=== PATIENT | male | born 1945 | race Caucasian/White ===

== ENCOUNTER → 2018-08-31 10:31 | Outpatient (CLI) | payer MEDICARE, OTHER, SELFPAY ==
[2018-08-31 11:17] LABS: Alanine Aminotransferase 31 IU/L (21-72); Albumin 4.2 g/dL (3.5-5.0); Albumin Globulin Ratio 1.2 (1.0-2.8); Alkaline Phosphatase 47 U/L (38-126); Aspartate Aminotransferase 33 IU/L (17-59); Bilirubin Total 0.7 mg/dL (0.2-1.3); Blood Urea Nitrogen 18 mg/dL (9-20); Calcium 9.4 mg/dL (8.4-10.2); Carbon Dioxide 31 mmol/L (22-32); Chloride 100 mmol/L (98-107); Cholesterol 101 mg/dL (140-199); Estimated Glomerular Filt Rate > 60.0 mL/min (>60); Globulin 3.4 g/dL (1.7-4.1); Glucose 105 mg/dL (80-110); HDL Cholesterol 43 mg/dL (40-60); HEMOLYSIS 19 (0-50); LDL Cholesterol Calculated 37 mg/dL (<100); Sodium 140 mmol/L (137-145); Total Protein 7.6 g/dL (6.3-8.2); Triglycerides 106 mg/dL (35-150)
== END ==
PROVIDERS: PCP Internal Medicine; Visit Provider Internal Medicine Cardiovascular Disease
DX: E78.5 Hyperlipidemia, unspecified (principal)
CPT/HCPCS: 36415; 80053; 80061

== ENCOUNTER → 2018-09-04 10:34 | Outpatient (CLI) | payer MEDICARE, OTHER, SELFPAY ==
--- NOTE | 2018-09-04 | DI.RAD.S_ITS ---
PROCEDURE: XR HIP W PEL IF DONE LT MIN 4V INDICATIONS: Right Hip Pain TECHNIQUE: AP pelvis with lateral view(s) of the right hip(s). COMPARISON: [facility], , XR HIP W PEL IF DONE LT 2V, 12/14/2017, 15:31. FINDINGS: Bones: No fractures or dislocations. Pelvic ring appears intact. No suspicious bony lesions. Soft tissues: The visualized bowel gas pattern is normal. No suspicious soft tissue calcifications. IMPRESSION: No definite radiographic abnormality. If pain persists, consider cross sectional imaging such as CT or MRI for further assessment. Dictated by: Johann Aguilar [facility] Interpreted: Jose Barrera MD on 09/04/2018 at 11:12 Approved by: Jose Barrera M.D. on 09/04/2018 at 16:59
== END ==
PROVIDERS: PCP Internal Medicine; Visit Provider Internal Medicine
DX: M25.551 Pain in right hip (principal)
CPT/HCPCS: 73522

== ENCOUNTER 2018-11-08 16:09 | Emergency (ER) | payer MEDICARE, OTHER, SELFPAY ==
[2018-11-08 16:18] VITALS: BP 126/75; PULSE 63; RESP 20; TEMP 36; O2SAT 96; BMI 31.3
--- NOTE | 2018-11-08 16:21 | DI.RAD.S_ITS ---
PROCEDURE: XR CHEST 2V INDICATIONS: cough for 30 days TECHNIQUE: 2 views of the chest were acquired. COMPARISON: [facility], , CHEST 1 VIEW, 02/05/2017, 8:17. FINDINGS: Surgical changes and devices: None. Lungs and pleura: Increase of the vascular markings and bilateral hilar region are seen with mild bronchial wall thickening. No focal infiltrate. No pleural effusions or pneumothorax. Mediastinum: Mediastinal contours are normal. Heart size is enlarged. Bones and chest wall: No suspicious bony abnormalities. Soft tissues appear unremarkable. IMPRESSION: Suggestion of reactive airway disease such as bronchitis or asthma. No focal infiltrate. Cardiomegaly. Dictated by: Jose Barrera M.D. on 11/08/2018 at 16:32 Approved by: Jose Barrera M.D. on 11/08/2018 at 16:35
--- NOTE | 2018-11-08 17:34 | ED.URI ---
HPI - URI/Sore Throat <WOJCIECH Dalton - Last Filed: 11/08/18 17:39> General Chief Complaint: Upper Respiratory Symptoms Stated Complaint: Cough Time Seen by Provider: 11/08/18 17:07 Source: patient and family Mode of arrival: ambulatory Limitations: no limitations History of Present Illness HPI Narrative: Patient is a 73-year-old male with cardiac history who presents with his for a chief complaint of a cough times over a month. He states that he can't sleep because his cough is so bad. He has associated nasal congestion. states that he was getting better, then got worse. He denies any severe shortness of breath or chest pain. Denies any fevers nausea vomiting, but complains of slight diarrhea. He states he has a history of a lung infection that damaged his lungs. He denies any dizziness or neurological symptoms today. He has tried multiple enhl-ckb-nnqscqf remedies including cough syrup, cold medication, etc. His states he wheezes occasionally at night. He states that he has cough is productive with whitish yellow sputum. He denies any ear pain. Related Data Home Medications Medication Instructions Recorded Confirmed losartan 25 mg PO QDAY #0 02/22/17 Previous Rx's Medication Instructions Recorded ondansetron [Zofran ODT] 4 mg SUBLINGUAL Q6HP PRN #10 odt 02/05/17 meclizine 25 mg PO Q6HP PRN #20 tab 02/22/17 cyclobenzaprine 10 mg PO TIDP PRN #14 tab 11/15/17 ketorolac 10 mg PO Q6HP PRN #15 tab 11/15/17 doxycycline hyclate 100 mg PO BID #20 tab 11/08/18 Allergies Allergy/AdvReac Type Severity Reaction Status Date / Time lisinopril AdvReac Mild COUGH Unverified 11/16/17 13:03 Review of Systems <WOJCIECH Dalton - Last Filed: 11/08/18 17:39> Review of Systems GENERAL: Denies chills, fatigue, malaise, fever, sweats. HEENT: See HPI RESPIRATORY: See HPI CARDIOVASCULAR: See HPI GASTROINTESTINAL: See HPI : Denies dysuria, frequency, incontinence, hematuria, urinary retention. MUSCULOSKELETAL: denies weakness, joint pain, or bony pain SKIN: Denies rash, skin lesions, or other NEUROLOGIC: Denies weakness, headache, numbness, change in speech, confusion, seizures, incoordination. PSYCHIATRIC: No concerning psychosocial issues. 12 point review of systems is negative except for those stated above PFSH <WOJCIECH Dalton - Last Filed: 11/08/18 17:39> Social History Smoking Status: Never smoker Social History Smoking Status: Never smoker Exam <WOJCIECH Dalton - Last Filed: 11/08/18 17:39> Narrative Exam Narrative: GENERAL: This is a well-nourished, well-developed patient, no acute distress at bedside HEAD: Atraumatic. Normocephalic. No temporal or scalp tenderness. EYES: Pupils equal round and reactive. Extraocular motions intact. No scleral icterus. No injection or drainage. ENT: Nose without bleeding, purulent drainage or septal hematoma. Throat without erythema, tonsillar hypertrophy or exudate. Uvula midline. Airway patent. the bilateral TMs pearly gallo. NECK: Trachea midline. No JVD or lymphadenopathy. Supple, nontender, no meningeal signs. CARDIOVASCULAR: Regular rate and rhythm without murmurs, gallops, or rubs. RESPIRATORY: Clear to auscultation. Breath sounds equal bilaterally. No wheezes, rales, or rhonchi. Perseverative cough during exam. GASTROINTESTINAL: Abdomen soft, non-tender, nondistended. No hepato-splenomegaly, or palpable masses. No guarding. active bowel signs all 4 quadrants. EXTREMITIES: No clubbing, cyanosis, or edema. No joint tenderness, effusion, or edema noted. BACK: Nontender without deformity or crepitance. No flank tenderness. NEURO: AOx3. SKIN: No rash or erythema. Initial Vital Signs Initial Vital Signs: Vital Signs Temperature 96.8 F L 11/08/18 16:18 Pulse Rate 63 11/08/18 16:18 Respiratory Rate 20 11/08/18 16:18 Blood Pressure 126/75 11/08/18 16:18 Pulse Oximetry 96 11/08/18 16:18 <Kristen Ugarte MD - Last Filed: 11/08/18 19:05> Initial Vital Signs Initial Vital Signs: Vital Signs Temperature 96.8 F L 11/08/18 16:18 Pulse Rate 63 11/08/18 16:18 Respiratory Rate 20 11/08/18 16:18 Blood Pressure 126/75 11/08/18 16:18 Pulse Oximetry 96 11/08/18 16:18 Course <WOJCIECH Dalton - Last Filed: 11/08/18 17:39> Orders Ordered: ED Orders 11/08/18 16:21 CXR [XR chest 2V] Stat Vital Signs - 8 hr 11/08/18 16:18 11/08/18 17:45 Temperature 96.8 F L Pulse Rate 63 60 Respiratory Rate 20 20 Blood Pressure 126/75 123/76 Pulse Oximetry 96 99 <Kristen Ugarte MD - Last Filed: 11/08/18 19:05> Orders Ordered: ED Orders 11/08/18 16:21 CXR [XR chest 2V] Stat Vital Signs - 8 hr 11/08/18 16:18 11/08/18 17:45 Temperature 96.8 F L Pulse Rate 63 60 Respiratory Rate 20 20 Blood Pressure 126/75 123/76 Pulse Oximetry 96 99 MDM - URI/Sore Throat <WOJCIECH Dalton - Last Filed: 11/08/18 17:39> Imaging Data Chest x-ray: Radiologist's impression: [place] [address] XRay Report Signed Patient: Chad Martinez [facility]#: [id number] : 7Acct:[id number] Age/Sex: 73 / MDate of Service: 11/08/18 Loc: ED Accession Number: [id number] Procedure: XR chest 2V Ordering Provider: Kristen Ugrate MD PROCEDURE: XR CHEST 2V INDICATIONS: cough for 30 days TECHNIQUE: 2 views of the chest were acquired. COMPARISON: , , CHEST 1 VIEW, 02/05/2017, 8:17. FINDINGS: Surgical changes and devices: None. Lungs and pleura: Increase of the vascular markings and bilateral hilar region are seen with mild bronchial wall thickening. No focal infiltrate. No pleural effusions or pneumothorax. Mediastinum: Mediastinal contours are normal. Heart size is enlarged. Bones and chest wall: No suspicious bony abnormalities. Soft tissues appear unremarkable. IMPRESSION: Suggestion of reactive airway disease such as bronchitis or asthma. No focal infiltrate. Cardiomegaly. Dictated by: Jose Barrera M.D. on 11/08/2018 at 16:32 Approved by: Jose Barrera M.D. on 11/08/2018 at 16:35 [facility] Narrative Medical decision making narrative: The patient is a 73-year-old male who presents with a chief complaint of a cough times over a month. He does not have an obvious infiltrate on his x-ray, though I am concerned about bacterial infection given his duration of cough and double 2nd Ng. Given his reported lung damage, is also higher risk of a bacterial infection. Thus I will treat him with doxycycline at this point time. I discussed at length continued iuee-ecj-njpvmig medications. Discussed following up with primary care provider. Discussed return precautions including severe shortness of breath, acute concerns. Patient and had no questions or concerns upon discharge. Discharge Plan Departure Patient Disposition: Home Clinical Impression: Lung infection Discharge Date/Time: 11/08/18 17:46 Interventions: ED Discharge Assessment Last Done: 11/08/18 17:45 Instructions: DI for Acute Bronchitis Activity Restrictions/Additional Instructions: I am treating you for bacterial infection given the duration of your symptoms. Please wear sunscreen while taking this antibiotic. Please follow up with your primary care provider and come back to emergency department for any acute concerns including severe shortness of breath, chest pain etc. Prescriptions: New doxycycline hyclate 100 mg tablet 100 mg PO BID Qty: 20 RF: 0 No Action ondansetron [Zofran ODT] 4 MG tablet,disintegrating 4 mg Sublingual Q6HP PRNQty: 10 RF: 0 losartan 25 MG tablet 25 mg PO QDAY Qty: 0 RF: 0 meclizine 25 MG tablet 25 mg PO Q6HP PRNQty: 20 RF: 0 cyclobenzaprine 10 MG tablet 10 mg PO TIDP PRNQty: 14 RF: 0 ketorolac 10 MG tablet 10 mg PO Q6HP PRNQty: 15 RF: 0 Referrals: Ramon Paris MD [Primary Care Provider] -
--- NOTE | 2018-11-08 17:39 | ED_ITS ---
HPI - URI/Sore Throat <WOJCIECH Dalton - Last Filed: 11/08/18 17:39> General Chief Complaint: Upper Respiratory Symptoms Stated Complaint: Cough Time Seen by Provider: 11/08/18 17:07 Source: patient and family Mode of arrival: ambulatory Limitations: no limitations History of Present Illness HPI Narrative: Patient is a 73-year-old male with cardiac history who presents with his for a chief complaint of a cough times over a month. He states that he can't sleep because his cough is so bad. He has associated nasal congestion. states that he was getting better, then got worse. He denies any severe shortness of breath or chest pain. Denies any fevers nausea vomiting, but complains of slight diarrhea. He states he has a history of a lung infection that damaged his lungs. He denies any dizziness or neurological symptoms today. He has tried multiple zdwi-qnm-foonodm remedies including cough syrup, cold medication, etc. His states he wheezes occasionally at night. He states that he has cough is productive with whitish yellow sputum. He denies any ear pain. Related Data Home Medications Medication Instructions Recorded Confirmed losartan 25 mg PO QDAY #0 02/22/17 Previous Rx's Medication Instructions Recorded ondansetron [Zofran ODT] 4 mg SUBLINGUAL Q6HP PRN #10 odt 02/05/17 meclizine 25 mg PO Q6HP PRN #20 tab 02/22/17 cyclobenzaprine 10 mg PO TIDP PRN #14 tab 11/15/17 ketorolac 10 mg PO Q6HP PRN #15 tab 11/15/17 doxycycline hyclate 100 mg PO BID #20 tab 11/08/18 Allergies Allergy/AdvReac Type Severity Reaction Status Date / Time lisinopril AdvReac Mild COUGH Unverified 11/16/17 13:03 Review of Systems <WOJCIECH Dalton - Last Filed: 11/08/18 17:39> Review of Systems GENERAL: Denies chills, fatigue, malaise, fever, sweats. HEENT: See HPI RESPIRATORY: See HPI CARDIOVASCULAR: See HPI GASTROINTESTINAL: See HPI : Denies dysuria, frequency, incontinence, hematuria, urinary retention. MUSCULOSKELETAL: denies weakness, joint pain, or bony pain SKIN: Denies rash, skin lesions, or other NEUROLOGIC: Denies weakness, headache, numbness, change in speech, confusion, seizures, incoordination. PSYCHIATRIC: No concerning psychosocial issues. 12 point review of systems is negative except for those stated above PFSH <WOJCIECH Dalton - Last Filed: 11/08/18 17:39> Social History Smoking Status: Never smoker Social History Smoking Status: Never smoker Exam <WOCJIECH Dalton - Last Filed: 11/08/18 17:39> Narrative Exam Narrative: GENERAL: This is a well-nourished, well-developed patient, no acute distress at bedside HEAD: Atraumatic. Normocephalic. No temporal or scalp tenderness. EYES: Pupils equal round and reactive. Extraocular motions intact. No scleral icterus. No injection or drainage. ENT: Nose without bleeding, purulent drainage or septal hematoma. Throat without erythema, tonsillar hypertrophy or exudate. Uvula midline. Airway patent. the bilateral TMs pearly gallo. NECK: Trachea midline. No JVD or lymphadenopathy. Supple, nontender, no meningeal signs. CARDIOVASCULAR: Regular rate and rhythm without murmurs, gallops, or rubs. RESPIRATORY: Clear to auscultation. Breath sounds equal bilaterally. No wheezes, rales, or rhonchi. Perseverative cough during exam. GASTROINTESTINAL: Abdomen soft, non-tender, nondistended. No hepato- splenomegaly, or palpable masses. No guarding. active bowel signs all 4 quadrants. EXTREMITIES: No clubbing, cyanosis, or edema. No joint tenderness, effusion, or edema noted. BACK: Nontender without deformity or crepitance. No flank tenderness. NEURO: AOx3. SKIN: No rash or erythema. Initial Vital Signs Initial Vital Signs: Vital Signs Temperature 96.8 F L 11/08/18 16:18 Pulse Rate 63 11/08/18 16:18 Respiratory Rate 20 11/08/18 16:18 Blood Pressure 126/75 11/08/18 16:18 Pulse Oximetry 96 11/08/18 16:18 <Kristen Ugarte MD - Last Filed: 11/08/18 19:05> Initial Vital Signs Initial Vital Signs: Vital Signs Temperature 96.8 F L 11/08/18 16:18 Pulse Rate 63 11/08/18 16:18 Respiratory Rate 20 11/08/18 16:18 Blood Pressure 126/75 11/08/18 16:18 Pulse Oximetry 96 11/08/18 16:18 Course <WOJCIECH Dalton - Last Filed: 11/08/18 17:39> Orders Ordered: ED Orders 11/08/18 16:21 CXR [XR chest 2V] Stat Vital Signs - 8 hr 11/08/18 16:18 11/08/18 17:45 Temperature 96.8 F L Pulse Rate 63 60 Respiratory Rate 20 20 Blood Pressure 126/75 123/76 Pulse Oximetry 96 99 <Kristen Ugarte MD - Last Filed: 11/08/18 19:05> Orders Ordered: ED Orders 11/08/18 16:21 CXR [XR chest 2V] Stat Vital Signs - 8 hr 11/08/18 16:18 11/08/18 17:45 Temperature 96.8 F L Pulse Rate 63 60 Respiratory Rate 20 20 Blood Pressure 126/75 123/76 Pulse Oximetry 96 99 MDM - URI/Sore Throat <WOJCIECH Dalton - Last Filed: 11/08/18 17:39> Imaging Data Chest x-ray: Radiologist's impression: [place] [address] XRay Report Signed Patient: Chad Martinez [facility]#: [id number] : 7Acct:[id number] Age/Sex: 73 / MDate of Service: 11/08/18 Loc: ED Accession Number: [id number] Procedure: XR chest 2V Ordering Provider: Kristen Ugarte MD PROCEDURE: XR CHEST 2V INDICATIONS: cough for 30 days TECHNIQUE: 2 views of the chest were acquired. COMPARISON: [facility], , CHEST 1 VIEW, 02/05/2017, 8:17. FINDINGS: Surgical changes and devices: None. Lungs and pleura: Increase of the vascular markings and bilateral hilar region are seen with mild bronchial wall thickening. No focal infiltrate. No pleural effusions or pneumothorax. Mediastinum: Mediastinal contours are normal. Heart size is enlarged. Bones and chest wall: No suspicious bony abnormalities. Soft tissues appear unremarkable. IMPRESSION: Suggestion of reactive airway disease such as bronchitis or asthma. No focal infiltrate. Cardiomegaly. Dictated by: Jose Barrera M.D. on 11/08/2018 at 16:32 Approved by: Jose Barrera M.D. on 11/08/2018 at 16:35 [facility] Narrative Medical decision making narrative: The patient is a 73-year-old male who presents with a chief complaint of a cough times over a month. He does not have an obvious infiltrate on his x-ray, though I am concerned about bacterial infection given his duration of cough and double 2nd Ng. Given his reported lung damage, is also higher risk of a bacterial infection. Thus I will treat him with doxycycline at this point time. I discussed at length continued khza-zws-jpcgyzn medications. Discussed following up with primary care pr ovider. Discussed return precautions including severe shortness of breath, acute concerns. Patient and had no questions or concerns upon discharge. Discharge Plan Departure Patient Disposition: Home Clinical Impression: Lung infection Discharge Date/Time: 11/08/18 17:46 Interventions: ED Discharge Assessment Last Done: 11/08/18 17:45 Instructions: DI for Acute Bronchitis Activity Restrictions/Additional Instructions: I am treating you for bacterial infection given the duration of your symptoms. Please wear sunscreen while taking this antibiotic. Please follow up with your primary care provider and come back to emergency department for any acute concerns including severe shortness of breath, chest pain etc. Prescriptions: New doxycycline hyclate 100 mg tablet 100 mg PO BID Qty: 20 RF: 0 No Action ondansetron [Zofran ODT] 4 MG tablet,disintegrating 4 mg Sublingual Q6HP PRNQty: 10 RF: 0 losartan 25 MG tablet 25 mg PO QDAY Qty: 0 RF: 0 meclizine 25 MG tablet 25 mg PO Q6HP PRNQty: 20 RF: 0 cyclobenzaprine 10 MG tablet 10 mg PO TIDP PRNQty: 14 RF: 0 ketorolac 10 MG tablet 10 mg PO Q6HP PRNQty: 15 RF: 0 Referrals: Ramon Paris MD [Primary Care Provider] -
[2018-11-08 17:45] VITALS: BP 123/76; PULSE 60; RESP 20; O2SAT 99
== END 2018-11-08 17:46 | disposition home or self-care (01) ==
PROVIDERS: Emergency Provider Nurse Practitioner Family; PCP Internal Medicine
DX: J18.9 Pneumonia, unspecified organism (principal)
CPT/HCPCS: 71046; 99282; 99283

== ENCOUNTER 2018-11-20 07:22 | Day surgery (SDC) | payer MEDICARE, OTHER, SELFPAY ==
[2018-11-20] VITALS (7 sets, daily range): BP systolic 110–132; BP diastolic 69–84; PULSE 53–60; RESP 11–24; TEMP 35.7–36.6; O2SAT 95–97; BMI 31.1
--- NOTE | 2018-11-20 07:38 | PM.HP.1 ---
History of Present Illness Chief complaint: [id number] Narrative: 73yo M referred for screening colonoscopy for CRC. No blood in stools, weight loss, change in stool caliber. Father of rectal cancer at age 65 so patient gets screens every 5 years; has never had any polyps. Tolerates sedation and scopes well. Recently had ECHO and stress test per intensive care ambulance paramedic and no issues per pt. Patient History Medical History (Updated 11/20/18 @ 07:58 by Isabelle Swanson MD) CAD (coronary artery disease) (Acute) HLD (hyperlipidemia) (Acute) HTN (hypertension) (Acute) Prostate enlargement (Acute) Social History household members: spouse Smoking Status: Never smoker Family & Social History Tobacco & Substance use: Smoking Status Never smoker Substance Use Type does not use Meds Home Medications Medication Instructions Recorded Confirmed Type aspirin 81 mg PO DAILY 11/20/18 11/20/18 History atorvastatin 40 mg PO BEDTIME 11/20/18 11/20/18 History hydrochlorothiazide 25 mg PO BEDTIME 11/20/18 11/20/18 History losartan 25 mg PO DAILY 11/20/18 11/20/18 History metoprolol tartrate 12.5 mg PO BID 11/20/18 11/20/18 History tamsulosin 0.4 mg PO BID 11/20/18 11/20/18 History Allergies Allergy/AdvReac Type Severity Reaction Status Date / Time lisinopril AdvReac Mild COUGH Verified 11/20/18 07:34 Review of Systems Constitutional Constitutional: Reports as per HPI Exam Vital Signs (past 8 hours): AAO, NAD, obese male EOMI, MMM, no scleral icterus unlabored RA soft, nt/nd MAEW Assessment & Plan (1) Screening for colorectal cancer: Current visit: Yes Status: Acute Assessment & Plan narrative: - plan for high risk screening colonoscopy --> all R/B/A discussed and pt wishes to proceed
[2018-11-20] MEDS: LACTATED RINGERS 1,000 ML 200 ML IV (07:56)
--- NOTE | 2018-11-20 07:56 | P.HP_ITS ---
History of Present Illness Chief complaint: [id number] Narrative: 73yo M referred for screening colonoscopy for CRC. No blood in stools, weight loss, change in stool caliber. Father of rectal cancer at age 65 so patient gets screens every 5 years; has never had any polyps. Tolerates sedation and scopes well. Recently had ECHO and stress test per front office representative and no issues per pt. Patient History Medical History (Updated 11/20/18 @ 07:58 by Isabelle Swanson MD) CAD (coronary artery disease) (Acute) HLD (hyperlipidemia) (Acute) HTN (hypertension) (Acute) Prostate enlargement (Acute) Social History household members: spouse Smoking Status: Never smoker Family & Social History Tobacco & Substance use: Smoking Status Never smoker Substance Use Type does not use Meds Home Medications Medication Instructions Recorded Confirmed Type aspirin 81 mg PO DAILY 11/20/18 11/20/18 History atorvastatin 40 mg PO BEDTIME 11/20/18 11/20/18 History hydrochlorothiazide 25 mg PO BEDTIME 11/20/18 11/20/18 History losartan 25 mg PO DAILY 11/20/18 11/20/18 History metoprolol tartrate 12.5 mg PO BID 11/20/18 11/20/18 History tamsulosin 0.4 mg PO BID 11/20/18 11/20/18 History Allergies Allergy/AdvReac Type Severity Reaction Status Date / Time lisinopril AdvReac Mild COUGH Verified 11/20/18 07:34 Review of Systems Constitutional Constitutional: Reports as per HPI Exam Vital Signs (past 8 hours): AAO, NAD, obese male EOMI, MMM, no scleral icterus unlabored RA soft, nt/nd MAEW Assessment & Plan (1) Screening for colorectal cancer: Current visit: Yes Status: Acute Assessment & Plan narrative: - plan for high risk screening colonoscopy --> all R/B/A discussed and pt wishes to proceed
[2018-11-20] MEDS: MIDAZOLAM 5 MG/5 ML VIAL IV (08:20)
[2018-11-20] MEDS: fentaNYL 250 MCG/5 ML INJ IV (08:21)
--- NOTE | 2018-11-20 08:28 | PM.OP.ENDO ---
Operative Date/Time/Diagnoses Date of procedure: 11/20/18 Time of procedure: 08:28 Pre-op diagnosis: high risk screening colorectal cancer Post-op diagnosis: same Procedure & Clinicians Study performed: high risk screening for colorectal cancer Same procedure as scheduled: Yes Indications: high risk screening colonoscopy Procedure Notes Procedure in detail: After obtaining informed consent, the patient was brought to the GI suite and placed in the left lateral decubitus position on the examination table. After placement of appropriate monitors, the patient was given incremental doses of Versed and Fentanyl until an appropriate level of sedation was achieved. A time out was held per SCOAP protocol. A digital rectal examination was performed and did not reveal any masses or obstructing lesions but small external hemorrhoids are noted. The colonoscope was gently passed into the patient's anus and the entire colon navigated to the level of the cecum with minimal difficulty. Prep was adequate with moderate green fluid present including some small stool matter. Once in the cecum, the scope was withdrawn being sure to go before and beyond all mucosal folds and prominences as able to get an excellent examination. No masses or poly At the level of the rectal vault, the scope was retroflexed and the internal anal canal was examined. The scope was straightened and air aspirated from the colon. The instrument was removed from the patient's body and the procedure was concluded. The patient was allowed to awaken from sedation without difficulty and taken to the post-anesthesia care unit in good condition. Scope withdrawal time: 8 Sedation minutes: 19 Findings: diverticulosis Specimen(s): none sent Complications: none Recommendations: Colonscopy in 5 years Follow up: as needed Disposition: same day surgery
--- NOTE | 2018-11-20 09:00 | PM.OP.ENDO ---
Operative Date/Time/Diagnoses Date of procedure: 11/20/18 Time of procedure: 08:29 Pre-op diagnosis: high risk screening colonoscopy Post-op diagnosis: same Procedure & Clinicians Study performed: high risk screening colonoscopy Same procedure as scheduled: Yes Indications: high risk screening for colorectal cancer Procedure Notes SCOAP/Timeout: 805 Procedure in detail: After obtaining informed consent, the patient was brought to the GI suite and placed in the left lateral decubitus position on the examination table. After placement of appropriate monitors, the patient was given incremental doses of Versed and Fentanyl until an appropriate level of sedation was achieved. A time out was held per SCOAP protocol. A digital rectal examination was performed and did not reveal any masses or obstructing lesions but small external hemorrhoids are noted. The colonoscope was gently passed into the patient's anus and the entire colon navigated to the level of the cecum with minimal difficulty. Prep was adequate with moderate green fluid present including some small stool matter. Once in the cecum, the scope was withdrawn being sure to go before and beyond all mucosal folds and prominences as able to get an excellent examination. No masses or polyps noted. Patient has extensive diverticulosis throughout sigmoid and left colon. At the level of the rectal vault, the scope was retroflexed and the internal anal canal was examined. The scope was straightened and air aspirated from the colon. The instrument was removed from the patient's body and the procedure was concluded. The patient was allowed to awaken from sedation without difficulty and taken to the post-anesthesia care unit in good condition. Scope withdrawal time: 8 Sedation minutes: 19 Findings: diverticulosis (sigmoid and left colon; moderate to severe) Specimen(s): none sent Complications: none Impression: 1. Extensive moderate to severe diverticulosis of sigmoid and left colon 2. Small external hemorrhoids Recommendations: Colonscopy in 5 years and High fiber diet Follow up: as needed Disposition: same day surgery
== END 2018-11-20 09:15 | disposition home or self-care (01) ==
LOC: ENDO 07:24
PROVIDERS: PCP Internal Medicine; Visit Provider Surgery
PROC: 0DJD8ZZ Inspection of Lower Intestinal Tract, Via Natural or Artificial Opening Endoscopic (ICD-10-PCS; CPT 45378; principal; 2018-11-20 08:45)
DX: Z12.11 Encounter for screening for malignant neoplasm of colon (principal); Z80.0 Family history of malignant neoplasm of digestive organs; I25.10 Atherosclerotic heart disease of native coronary artery without angina pectoris; E78.5 Hyperlipidemia, unspecified; I10 Essential (primary) hypertension; N40.0 Benign prostatic hyperplasia without lower urinary tract symptoms; K57.30 Diverticulosis of large intestine without perforation or abscess without bleeding; K64.4 Residual hemorrhoidal skin tags
CPT/HCPCS: G0105; 99152; J2250; J3010

== ENCOUNTER 2019-02-18 10:18 | Emergency (ER) | payer MEDICARE, OTHER, SELFPAY ==
--- NOTE | 2019-02-18 10:34 | DI.RAD.S_ITS ---
PROCEDURE: XR RIBS LT MIN 3V W CXR1V INDICATIONS: Rib pain TECHNIQUE: 3 views of the left ribs were acquired, along with a single view chest. COMPARISON: [facility], CR, XR CHEST 2V, 11/08/2018, 16:27. FINDINGS: Surgical changes and devices: None. Bones and chest wall: No fractures or dislocations. No suspicious bony lesions. Overlying soft tissues appear unremarkable. Age-appropriate bony degenerative changes are seen. Lungs and pleura: No pleural effusions or pneumothorax. Lungs appear clear. Mediastinum: Mediastinal contours appear normal. Heart size is normal. IMPRESSION: No displaced rib fractures are seen. Dictated by: Александр Martin M.D. on 02/18/2019 at 9:45 Approved by: Александр Martin M.D. on 02/18/2019 at 9:46
[2019-02-18 10:35] VITALS: BP 128/91; PULSE 61; RESP 17; TEMP 36.6; O2SAT 99
--- NOTE | 2019-02-18 11:11 | ED.BACK ---
HPI - Back Pain/Injury General Chief Complaint: Back Pain/Injury Stated Complaint: Left rib pain Time Seen by Provider: 02/18/19 10:49 Source: patient Mode of arrival: ambulatory Limitations: no limitations History of Present Illness HPI Narrative: Patient comes to the emergency department complaining of left rib pain after reaching back while sitting on his tractor to pull lever about 1 week ago. He states he felt a pop at that time, and has had increasing pain in his left chest wall since. Patient denies shortness of breath. No other chest pain. No radiation of the pain to anywhere else. No nausea or vomiting. No fevers or chills. No cough. No other complaints at this time. No further injuries. Related Data Home Medications Medication Instructions Recorded Confirmed aspirin 81 mg PO DAILY 11/20/18 11/20/18 atorvastatin 40 mg PO BEDTIME 11/20/18 11/20/18 hydrochlorothiazide 25 mg PO BEDTIME 11/20/18 11/20/18 losartan 25 mg PO DAILY 11/20/18 11/20/18 metoprolol tartrate 12.5 mg PO BID 11/20/18 11/20/18 tamsulosin 0.4 mg PO BID 11/20/18 11/20/18 Previous Rx's Medication Instructions Recorded hydrocodone-acetaminophen 1 tab PO Q4-6H PRN #14 tab 02/18/19 Allergies Allergy/AdvReac Type Severity Reaction Status Date / Time lisinopril AdvReac Mild COUGH Verified 11/20/18 07:34 Review of Systems Constitutional Denies chills, Denies fever(s), Denies lethargy and Denies weakness Eyes Denies change in vision, Denies eye discharge, Denies irritation and Denies loss of vision ENT Ears, Nose, Mouth, and Throat: Denies change in voice, Denies neck pain and Denies sore throat Cardiovascular Reports chest pain, Denies irregular heart rhythm, Denies lightheadedness, Denies palpitations, Denies dyspnea, Denies dyspnea on exertion and Denies orthopnea Respiratory Denies cough, Denies dyspnea, Denies dyspnea on exertion and Denies wheezing Gastrointestinal Gastrointestinal: Denies abdominal pain, Denies change in bowel habits, Denies diarrhea, Denies nausea and Denies vomiting Genitourinary Denies hematuria, Denies flank pain, Denies urinary incontinence and Denies urinary urgency Musculoskeletal Denies neck pain Integumentary/Breasts Denies pruritus, Denies erythema, Denies rash and Denies wounds Neurologic Denies confusion, Denies loss of vision and Denies weakness Psychiatric Denies anxiety, Denies confusion, Denies depression, Denies homicidal ideation and Denies suicidal ideation Endocrine Denies palpitations Hematologic/Lymphatic Denies easy bruising Allergic/Immunologic Denies wheezing [facility] Medical History CAD (coronary artery disease) (Acute) HLD (hyperlipidemia) (Acute) HTN (hypertension) (Acute) Prostate enlargement (Acute) Social History household members: spouse Smoking Status: Never smoker Social History household members: spouse Smoking Status: Never smoker Exam Initial Vital Signs Initial Vital Signs: Vital Signs Temperature 97.8 F 02/18/19 10:35 Pulse Rate 61 02/18/19 10:35 Respiratory Rate 17 02/18/19 10:35 Blood Pressure 128/91 H 02/18/19 10:35 Pulse Oximetry 99 02/18/19 10:35 Const General: cooperative and well developed Nutritional Appearance: well nourished Orientation: alert, awake, oriented x3 and not confused [facility] Head: normocephalic and atraumatic Ears: external ears normal and TM's normal bilaterally Nose: external nose normal and No nasal discharge Face and sinus: sinuses nontender, face symmetric, no sinus tenderness and No dry mucous membranes Mouth: oral mucosae normal and moist mucous membranes Teeth and gingiva: dentition normal Throat: tonsils normal and uvula midline Eyes General: appearance normal, both eyes and all related structures Eyelids: eyelids normal Conjunctivae: conjunctivae normal Sclera: sclerae normal Pupils: PERRL EOM: EOM intact bilaterally Neck Neck: normal visual inspection, trachea midline, No lymphadenopathy, No midline deformity and No JVD Lymphatic: No lymphedema Chest Chest: tenderness (Over rib 8 lateral aspect on the left) Resp Effort & Inspection: normal respiratory effort, able to speak in complete sentences, no respiratory distress and no use of accessory muscles Auscultation: clear to auscultation bilaterally, no rales, no rhonchi and no wheezes Cardio Rate: regular rate Rhythm: regular rhythm Heart Sounds: no click, no gallops, no murmurs and no rubs Pulses: normal peripheral pulses GI Inspection: non-distended Palpation: soft, no hepatosplenomegaly, No guarding, No pulsatile mass and No tender Auscultation: normal bowel sounds Back/Spine/Pelvis Back: No CVA tenderness Cervical Spine: cervical ROM normal and No pain with cervical ROM Thoracic/Lumbar Spine: thoracic and lumbar spine normal to inspection Skin General: no rashes or lesions noted, No jaundice and No petechiae Neuro General: alert, oriented x3, gait normal and no focal motor deficits Speech: speech normal Extrem General: full ROM, no clubbing, cyanosis or edema, no pedal edema and no calf tenderness Psych Appearance: well kempt Mental Status: mental status grossly normal Attitude: cooperative Thought Content: normal and suicidality Judgment: judgment good Course Course Narrative: Patient declined symptomatic treatment in the emergency department. X-ray of the ribs and chest was unremarkable. I discussed with the patient that he is most likely strain the soft tissue in his chest wall, and that while this is uncomfortable, it will resolve on its own. We have discussed symptomatic management at home, as well as the usual indications for return. Orders Ordered: ED Orders 02/18/19 10:34 XR ribs LT min 3V w CXR1V Stat Vital Signs - 8 hr 02/18/19 10:35 Temperature 97.8 F Pulse Rate 61 Respiratory Rate 17 Blood Pressure 128/91 H Pulse Oximetry 99 MDM - Back Pain/Injury Medical Records Attestation: I reviewed the patient's medical records. Imaging Data Chest x-ray: Radiologist's impression: PROCEDURE: XR RIBS LT MIN 3V W CXR1V INDICATIONS: Rib pain TECHNIQUE: 3 views of the left ribs were acquired, along with a single view chest. COMPARISON: [facility], , XR CHEST 2V, 11/08/2018, 16:27. FINDINGS: Surgical changes and devices: None. Bones and chest wall: No fractures or dislocations. No suspicious bony lesions. Overlying soft tissues appear unremarkable. Age-appropriate bony degenerative changes are seen. Lungs and pleura: No pleural effusions or pneumothorax. Lungs appear clear. Mediastinum: Mediastinal contours appear normal. Heart size is normal. IMPRESSION: No displaced rib fractures are seen. Dictated by: Александр Martin M.D. on 02/18/2019 at 9:45 Approved by: Александр Martin M.D. on 02/18/2019 at 9:46 Discharge Plan Departure Patient Disposition: Home Clinical Impression: Strain of chest wall Qualifiers: Encounter type: initial encounter Qualified Code(s): S29.011A - Strain of muscle and tendon of front wall of thorax, initial encounter Instructions: DI for Chest Pain Activity Restrictions/Additional Instructions: Your x-rays look good. Your lungs are normal, as are your bones. There is no evidence of a break or of any bony abnormality to raise concern for an underlying condition. You have most likely strained part of the muscular layer between your ribs, and this has become inflamed and spasms. This will heal on its own in time. You may use the Vicodin instead of the Tylenol, as needed for pain. You may also increase your aspirin intake to 325 mg every 6 hours to help with pain control, as well. Please follow up with your primary care physician for further concerns. Prescriptions: New hydrocodone-acetaminophen 5-325 mg tablet 1 tab PO Q4-6H PRN (Reason: pain) Qty: 14 RF: 0 No Action atorvastatin 40 mg tablet 40 mg PO BEDTIME RF: 0 tamsulosin 0.4 mg capsule 0.4 mg PO BID RF: 0 hydrochlorothiazide 25 mg tablet 25 mg PO BEDTIME RF: 0 metoprolol tartrate 25 mg tablet 12.5 mg PO BID RF: 0 losartan 25 mg tablet 25 mg PO DAILY RF: 0 aspirin 81 mg Tablet,Delayed Release (Dr/Ec) 81 mg PO DAILY RF: 0 Referrals: Ramon Paris MD [Primary Care Provider] -
[2019-02-18 11:24] VITALS: BP 118/86; PULSE 62; RESP 17; O2SAT 100
== END 2019-02-18 11:25 | disposition home or self-care (01) ==
PROVIDERS: Emergency Provider Emergency Medicine; PCP Internal Medicine
DX: S29.011A Strain of muscle and tendon of front wall of thorax, initial encounter (principal)
CPT/HCPCS: 71101; 99282; 99283

== ENCOUNTER 2020-02-21 21:30 | Emergency (ER) | payer MEDICARE, OTHER, SELFPAY ==
[2020-02-21 21:45] VITALS: BP 149/85; PULSE 77; RESP 15; TEMP 36.4; O2SAT 97; BMI 31.4
--- NOTE | 2020-02-21 21:45 | ED_ITS ---
HPI - Eye Problem General Chief complaint: Eye Problems Stated complaint: something in his right eye Time Seen by Provider: 02/21/20 21:45 Source: patient Mode of arrival: Ambulatory Limitations: no limitations History of Present Illness HPI Narrative: 74-year-old male nonsmoker with history of hypertension and hyperlipidemia presents with his in the chief complaint of a foreign body in his right eye. He states that he was working outside yesterday and felt something blow into his eye and has felt bit irritated ever since. He denies any drainage, significant pain or change in his vision. He states that he feels that it is on the lower right aspect of his field of vision in his right eye. He does not were contacts. He states his tetanus is out-of-date MD chief complaint: foreign body Onset (ago): day(s) Onset description: sudden Duration: constant Location: right eye Eye Symptoms: foreign body sensation Place: street/outdoors Mechanism: direct trauma Severity: mild Associated symptoms: none Treatments Prior to Arrival: none Related Data Patient tetanus UTD: No Home Medications Medication Instructions Recorded Confirmed aspirin 81 mg PO DAILY 11/20/18 11/20/18 atorvastatin 40 mg PO BEDTIME 11/20/18 11/20/18 hydrochlorothiazide 25 mg PO BEDTIME 11/20/18 11/20/18 losartan 25 mg PO DAILY 11/20/18 11/20/18 metoprolol tartrate 12.5 mg PO BID 11/20/18 11/20/18 tamsulosin 0.4 mg PO BID 11/20/18 11/20/18 Previous Rx's Medication Instructions Recorded hydrocodone-acetaminophen 1 tab PO Q4-6H PRN #14 tab 02/18/19 Allergies Allergy/AdvReac Type Severity Reaction Status Date / Time lisinopril AdvReac Mild COUGH Verified 11/20/18 07:34 Review of Systems Constitutional Constitutional: Denies chills, Denies fatigue, Denies fever(s), Denies frequent falls, Denies lethargy and Denies weakness Eyes Eyes: Denies change in vision, Denies eye discharge, Denies irritation and Denies loss of vision ENT Ears, Nose, Mouth, and Throat: Denies change in voice, Denies dizziness, Denies neck pain, Denies sore throat and Denies throat swelling Cardiovascular Cardiovascular: Denies chest pain, Denies irregular heart rhythm, Denies lightheadedness, Denies palpitations, Denies dyspnea, Denies dyspnea on exertion and Denies orthopnea Respiratory Respiratory: Denies cough, Denies dyspnea, Denies dyspnea on exertion and Denies wheezing Gastrointestinal Gastrointestinal: Denies abdominal pain, Denies change in bowel habits, Denies diarrhea, Denies nausea and Denies vomiting Musculoskeletal Musculoskeletal: Denies neck pain and Denies numbness Integumentary/Breasts Skin/Breast: Denies pruritus, Denies erythema, Denies rash and Denies wounds Neurologic Neurologic: Denies behavioral changes, Denies confusion, Denies dizziness, Denies frequent falls, Denies loss of vision, Denies numbness and Denies weakness Psychiatric Psychiatric: Denies anxiety, Denies behavioral changes, Denies confusion, Denies depression, Denies homicidal ideation and Denies suicidal ideation Endocrine Endocrine: Denies fatigue, Denies flushing and Denies palpitations Hematologic/Lymphatic Hematologic/Lymphatic: Denies easy bruising Allergic/Immunologic Allergic/Immunologic: Denies urticaria, Denies throat swelling and Denies wheezing Patient History Medical History CAD (coronary artery disease) (Acute) HLD (hyperlipidemia) (Acute) HTN (hypertension) (Acute) Prostate enlargement (Acute) Social History household members: spouse Smoking Status: Never smoker Smoking Status: Never smoker Substance Use Type: does not use Exam Narrative Exam Narrative: GEN: AOx3 and in mild distress EYES: Pupils are equal, round, and reactive to light and accommodation. Extraoccular muscles are intact bilaterally. There is no subconjunctival hem orrhage or exudate. Visual acuity noted in nurse's chart. Proparacaine instilled in right eye resulted in a near complete resolution of symptoms. Eyelash noted at the 7 o'clock position and easily removed. Viewed with fluorescein under UV and no dye uptake noted. Upper lid everted and no other foreign body noted. No sign of infection or drainage CHEST: Lungs are clear to auscultation bilaterally and free of wheezes, rales, or rhonchi. Heart rate is regular rhythm, there are no murmurs, clicks, rubs, or gallops. There is no chest wall tenderness. ABD: Abdomen is soft and nontender. There is no guarding or rebound. Bowel sounds are normal in all 4 quadrants. There is no mass or organomegaly. EXT: Full painless ROM of all extremities with no loss of sensation or strength. SKIN: Warm, pink, and dry. No erythema or rash Initial Vital Signs Initial Vital Signs: Vital Signs Temperature 97.5 F L 02/21/20 21:45 Pulse Rate 77 02/21/20 21:45 Respiratory Rate 15 02/21/20 21:45 Blood Pressure 149/85 H 02/21/20 21:45 Pulse Oximetry 97 02/21/20 21:45 Course Orders Ordered: Discontinued Medications Diphtheria/Tetanus/Acell Pertussis (Adacel) 0.5 ml IM .ONCE ONE Stop: 02/21/20 22:20 Last Admin: 02/21/20 22:40 Dose: 0.5 ml Documented by: MMCFARL Fluorescein Sodium (Ful-Nadia) 1 mg EYE-RIGHT NOW ONE Stop: 02/21/20 22:06 Last Admin: 02/21/20 22:09 Dose: 1 mg Documented by: MMCFARL Proparacaine HCl (Parcaine 0.5% Ophth Astrid) 1 drops EYE-RIGHT NOW ONE Stop: 02/21/20 21:47 Last Admin: 02/21/20 22:08 Dose: 1 drop Documented by: MMCFARL Vital Signs Vital signs: Vital Signs - 8 hr 02/21/20 22:44 Pulse Rate 75 Respiratory Rate 16 Blood Pressure 127/83 Pulse Oximetry 96 Discharge Plan Departure Patient Disposition: Home Clinical Impression: Foreign body in eye Qualifiers: Encounter type: initial encounter Laterality: right Qualified Code(s): T15.91XA - Foreign body on external eye, part unspecified, right eye, initial encounter Discharge Date/Time: 02/21/20 23:00 Instructions: DI for Foreign Body in the Eye Activity Restrictions/Additional Instructions: *You have been diagnosed with [foreign body in right eye, I removed a hair that was likely causing her trouble.] *What to do: *Follow up with your primary care provider in 2-3 days, call for an appointment. Let them know you were seen in the Emergency Department and that we ask that you be seen in follow up *Return to ER if you should have any new, worsening or concerning symptoms Prescriptions: No Action hydrocodone-acetaminophen 5-325 mg tablet 1 tab PO Q4-6H PRN (Reason: pain) Qty: 14 RF: 0 atorvastatin 40 mg tablet 40 mg PO BEDTIME RF: 0 tamsulosin 0.4 mg capsule 0.4 mg PO BID RF: 0 hydrochlorothiazide 25 mg tablet 25 mg PO BEDTIME RF: 0 metoprolol tartrate 25 mg tablet 12.5 mg PO BID RF: 0 losartan 25 mg tablet 25 mg PO DAILY RF: 0 aspirin 81 mg Tablet,Delayed Release (Dr/Ec) 81 mg PO DAILY RF: 0 Referrals: Ramon Paris MD [Primary Care Provider] -
[2020-02-21] MEDS: PROPARACAINE 0.5% OPHTH SOL 1 DROPS EYE-RIGHT (22:08)
[2020-02-21] MEDS: FLUORESCEIN 1 MG STRIP EYE-RIGHT (22:09)
[2020-02-21] MEDS: TET,DIPH,PERTUSS(ACELL),VAC/PF 0.5 ML SYRINGE IM (22:40)
[2020-02-21 22:44] VITALS: BP 127/83; PULSE 75; RESP 16; O2SAT 96
== END 2020-02-21 23:00 | disposition home or self-care (01) ==
PROVIDERS: Emergency Provider Emergency Medicine; PCP Internal Medicine
DX: T15.91XA Foreign body on external eye, part unspecified, right eye, initial encounter (principal); Z23 Encounter for immunization
CPT/HCPCS: 90471; 99283; 90715

== ENCOUNTER → 2020-03-31 08:30 | Outpatient (CLI) | payer MEDICARE, OTHER, SELFPAY ==
[2020-03-31 09:33] LABS: BUN Creatinine Ratio 14.4 (6-22); Blood Urea Nitrogen 15 mg/dL (9-20); Calcium 8.9 mg/dL (8.4-10.2); Carbon Dioxide 29 mmol/L (22-32); Chloride 101 mmol/L (98-107); Cholesterol 118 mg/dL (140-199); Estimated Glomerular Filt Rate > 60.0 mL/min (>60); Glucose 109 mg/dL (80-110); HDL Cholesterol 48 mg/dL (40-60); HEMOLYSIS 30 (0-50); LDL Cholesterol Calculated 35 mg/dL (<100); Potassium 4.2 mmol/L (3.4-5.1); Sodium 139 mmol/L (137-145); Triglycerides 173 mg/dL (35-150)
== END ==
PROVIDERS: PCP Internal Medicine; Referring Provider Nurse Practitioner; Visit Provider Nurse Practitioner
DX: I25.10 Atherosclerotic heart disease of native coronary artery without angina pectoris (principal); E78.5 Hyperlipidemia, unspecified; I10 Essential (primary) hypertension; I77.810 Thoracic aortic ectasia
CPT/HCPCS: 36415; 80048; 80061

== ENCOUNTER → 2021-04-09 09:46 | Outpatient (CLI) | payer MEDICARE, OTHER, SELFPAY ==
[2021-04-09 10:47] LABS: Add Manual Diff / Slide Review NO; Basophils Absolute Auto 100 /uL (0-100); Basophils Percent Auto 0.9 % (0-2); Eosinophils Absolute Auto 100 /uL (0-450); Eosinophils Percent Auto 1.9 % (2-4); Hematocrit 40.8 % (41-53); Hemoglobin 14.1 g/dL (13.5-17.5); Lymphocytes Absolute Auto 2000 /uL (1100-4500); Lymphocytes Percent Auto 32.2 % (25-40); Mean Corpuscular HGB Conc 34.6 % (30-36); Mean Corpuscular Hemoglobin 31.8 PG (26-34); Mean Corpuscular Volume 91.7 fL (80-100); Monocytes Absolute Auto 600 /uL (0-900); Monocytes Percent Auto 10.1 % (3-14); Neutrophils Absolute Auto 3500 /uL (1500-7000); Neutrophils Percent Auto 54.9 % (50-75); Platelet Count 162 X10^3/uL (150-400); Red Blood Cell Count 4.45 X10^6/uL (4.5-5.9); Red Cell Distribution Width 13.3 % (11.6-14.8); White Blood Cell Count 6.3 X10^3/uL (4.5-11.0)
[2021-04-09 10:54] LABS: Alanine Aminotransferase 31 IU/L (<50); Albumin 4.2 g/dL (3.5-5.0); Albumin Globulin Ratio 1.4 (1.0-2.8); Alkaline Phosphatase 52 U/L (38-126); Aspartate Aminotransferase 39 IU/L (17-59); BUN Creatinine Ratio 12.5 (6-22); Bilirubin Total 0.9 mg/dL (0.2-1.3); Blood Urea Nitrogen 11 mg/dL (9-20); Calcium 9.3 mg/dL (8.4-10.2); Carbon Dioxide 29 mmol/L (22-32); Chloride 103 mmol/L (98-107); Cholesterol 104 mg/dL (140-199); Estimated Glomerular Filt Rate > 60.0 mL/min (>60); Globulin 2.9 g/dL (1.7-4.1); Glucose 114 mg/dL (80-110); HDL Cholesterol 50 mg/dL (40-60); HEMOLYSIS < 15 (0-50); LDL Cholesterol Calculated 26 mg/dL (<100); Potassium 4.2 mmol/L (3.4-5.1); Sodium 139 mmol/L (137-145); Total Protein 7.1 g/dL (6.3-8.2); Triglycerides 141 mg/dL (35-150)
[2021-04-09 11:18] LABS: Prostate Specific Antigen Scrn 0.746 ng/mL (0.1-4.0)
== END ==
PROVIDERS: PCP Family Medicine; Referring Provider Family Medicine; Visit Provider Family Medicine
DX: N40.1 Benign prostatic hyperplasia with lower urinary tract symptoms (principal); I10 Essential (primary) hypertension; R39.14 Feeling of incomplete bladder emptying; E78.5 Hyperlipidemia, unspecified
CPT/HCPCS: 36415; 80053; 80061; 84153; 85025; G0103

== ENCOUNTER 2021-09-06 03:57 | Emergency (ER) | payer MEDICARE, OTHER, SELFPAY ==
[2021-09-06 04:00] VITALS: BP 154/71; PULSE 68; RESP 15; TEMP 36.1; O2SAT 99
--- NOTE | 2021-09-06 04:06 | ED_ITS ---
HPI - Skin/Abscess/Foreign Bdy General Chief complaint: Extremity Injury, Upper Stated complaint: ring stuck on finger Time Seen by Provider: 09/06/21 04:04 History of Present Illness HPI narrative: Patient is a 75-year-old male history of coronary artery disease presenting with need for ring removal. He is he grabbed a horse yesterday by the Holter who tried to run. No injury to his finger however this morning when he woke up he noticed that his left ring finger was swollen around his wedding ring. Nursing staff has removed the ring. No numbness tingling or weakness. Related Data Home Medications Medication Instructions Recorded Confirmed aspirin 81 mg tablet,delayed 81 mg PO DAILY 11/20/18 11/20/18 release atorvastatin 40 mg tablet 40 mg PO BEDTIME 11/20/18 11/20/18 hydrochlorothiazide 25 mg tablet 25 mg PO BEDTIME 11/20/18 11/20/18 losartan 25 mg tablet 25 mg PO DAILY 11/20/18 11/20/18 metoprolol tartrate 25 mg tablet 12.5 mg PO BID 11/20/18 11/20/18 tamsulosin 0.4 mg capsule 0.4 mg PO BID 11/20/18 11/20/18 Previous Rx's Medication Instructions Recorded hydrocodone 5 mg-acetaminophen 325 1 tab PO Q4-6H PRN #14 tab 02/18/19 mg tablet Allergies Allergy/AdvReac Type Severity Reaction Status Date / Time lisinopril AdvReac Mild COUGH Verified 11/20/18 07:34 Review of Systems Review of Systems Narrative: GENERAL: Denies chills,fever HEENT: Denies throat pain RESPIRATORY: Denies dyspnea, cough, wheezing CARDIOVASCULAR: Denies chest pain, palpitations GASTROINTESTINAL: Denies nausea, vomiting MUSCULOSKELETAL: See HPI SKIN: No rash, no laceration, no pruritus NEUROLOGIC: Denies weakness, dizziness, headache, numbness 8 point review of systems is negative except for those stated above and HPI Patient History Medical History (Updated 09/06/21 @ 04:05 by Sujey Solis DO) CAD (coronary artery disease) HLD (hyperlipidemia) HTN (hypertension) Prostate enlargement Social History household members: spouse Smoking Status: Never smoker Smoking Status: Never smoker Substance Use Type: does not use Exam Initial Vital Signs Initial Vital Signs: Vital Signs Temperature 97.0 F L 09/06/21 04:00 Pulse Rate 68 09/06/21 04:00 Respiratory Rate 15 09/06/21 04:00 Blood Pressure 154/71 H 09/06/21 04:00 Pulse Oximetry 99 09/06/21 04:00 GENERAL: Well-appearing, well-nourished and in no acute distress. CARDIOVASCULAR: peripheral pulses in tact, cap refill <2 sec RESPIRATORY: No respiratory distress, speaks in full sentences without difficulty EXTREMITIES: Normal range of motion, no clubbing or edema. Neurovascularly intact Left hand ring has now been removed full flexion extension and sergeant missile crewman strength. NEUROLOGICAL: Cranial nerves II through XII grossly intact. Normal gait and speech. SKIN: Warm, dry, no petechiae, no rashes or lesions. Course Vital Signs Vital signs: Vital Signs - 8 hr 09/06/21 04:00 Temperature 97.0 F L Pulse Rate 68 Respiratory Rate 15 Blood Pressure 154/71 H Pulse Oximetry 99 Discharge Plan Departure Patient Disposition: Home Clinical Impression: Foreign body Activity Restrictions/Additional Instructions: *You have been diagnosed with ring removed *What to do: *Continue to take medications as directed *Follow up with your primary care provider in 2-3 days or call [phone] *Return to ER if you should have increased swelling numbness tingling or any new, worsening or concerning symptoms Prescriptions: No Action hydrocodone-acetaminophen 5-325 mg tablet 1 tab PO Q4-6H PRN (Reason: pain) Qty: 14 0RF atorvastatin 40 mg tablet 40 mg PO BEDTIME 0RF tamsulosin 0.4 mg capsule 0.4 mg PO BID 0RF hydrochlorothiazide 25 mg tablet 25 mg PO BEDTIME 0RF metoprolol tartrate 25 mg tablet 12.5 mg PO BID 0RF losartan 25 mg tablet 25 mg PO DAILY 0RF aspirin 81 mg Tablet,Delayed Release (Dr/Ec) 81 mg PO DAILY 0RF Referrals: Agus Denton MD [Primary Care Provider] -
--- NOTE | 2021-09-06 04:08 | PC.NURSE ---
Ring was removed with lubricant.
== END 2021-09-06 04:10 | disposition home or self-care (01) ==
LOC: ED 04:08
PROVIDERS: Emergency Provider Emergency Medicine; PCP Family Medicine
DX: S60.445A External constriction of left ring finger, initial encounter (principal); W49.04XA Ring or other jewelry causing external constriction, initial encounter
CPT/HCPCS: 99281

== ENCOUNTER → 2022-02-25 10:39 | Outpatient (CLI) | payer MEDICARE, OTHER, SELFPAY ==
--- NOTE | 2022-02-25 | DI.US.S_ITS ---
PROCEDURE: US ABD AORTA ANEURYSM SCREEN INDICATIONS: AAA Screening TECHNIQUE: Real time scanning was performed of the aorta and iliac arteries, with image documentation. COMPARISON: [facility], US, ABD AORTA ANEURYSM SCREENING, 11/02/2012, 8:30. [facility], CT, ABDOMEN/PELVIS WITH CONTRAST, 11/15/2017, 9:26. FINDINGS: Aorta: Proximal aortic diameter measures 1.9 x 2.5 cm. Mid-aorta measures 2 x 1.8 cm. Distal aortic diameter is 1.9 x 2 cm. Iliac arteries: Right common iliac artery measures 0.9 x 1.1 cm. Left common iliac artery measures 0.8 x 1.1 cm. IMPRESSION: Negative for aneurysm. Dictated by: Александр Matrin M.D. on 02/25/2022 at 10:42 Approved by: Александр Martin M.D. on 02/25/2022 at 10:43
--- NOTE | 2022-02-25 | DI.US.S_ITS ---
PROCEDURE: US THYROID INDICATIONS: Nontoxic single thyroid nodule TECHNIQUE: Real-time scanning was performed of the thyroid gland, with image documentation. COMPARISON: None. FINDINGS: Right: Thyroid lobe measures 4.2 x 2 x 1.8 cm, and is homogeneous in echotexture. Left: Thyroid lobe measures 4.3 x 1.8 x 1.3 cm, and is homogenous in echotexture. Isthmus: 0.3 cm thick. Nodule number: 1 Location: Right inferior Size: 0.9 x 0.9 x 0.7 cm. Composition: Solid Echogenicity: Hypoechoic Shape: wider than tall. Margins: Ill-defined Echogenic foci: None Total points: 3 ACR TI-RADS category: TR 3, mildly suspicious IMPRESSION: Right thyroid nodule measuring 0.9 cm. TR 3, mildly suspicious. No further imaging follow-up is required given its small size. ACR TI-RADS definitions and recommendations: TI-RADS 1 (benign): 0 points. FNA not needed. TI-RADS 2 (not suspicious): 2 points. FNA not needed. TI-RADS 3 (mildly suspicious): 3 points. * FNA if 2.5 cm or larger, follow up if 1.5 cm or larger (at 1, 3, and 5 years). TI-RADS 4 (moderately suspicious): 4-6 points. * FNA if 1.5 cm or larger, follow up if 1 cm or larger (at 1, 2, 3, and 5 years). TI-RADS 5 (highly suspicious): 7 points or more. * FNA if 1 cm or larger, follow up if 0.5 cm or larger (every year for 5 years). Dictated by: Kade Herbert M.D. on 02/25/2022 at 11:53 Approved by: Kade Herbert M.D. on 02/25/2022 at 11:57
== END ==
PROVIDERS: PCP Internal Medicine; Referring Provider Internal Medicine; Visit Provider Internal Medicine
DX: Z13.6 Encounter for screening for cardiovascular disorders (principal); E04.1 Nontoxic single thyroid nodule
CPT/HCPCS: 76536; 76706

== ENCOUNTER 2022-10-21 04:17 | Emergency (ER) | payer MEDICARE, OTHER, SELFPAY ==
[2022-10-21 04:29] VITALS: BP 143/56; PULSE 63; PULSE 66; RESP 22; TEMP 36.1; O2SAT 98; BMI 16.9
[2022-10-21 04:30] VITALS: PULSE 59; O2SAT 98
--- NOTE | 2022-10-21 04:33 | DI.CT.S_ITS ---
PROCEDURE: CT KIDNEY URETER BLADDER (KUB) INDICATIONS: left flank pain TECHNIQUE: Axial sections were acquired from the lung bases to the pubic symphysis. Coronal and sagittal reformats were performed. For radiation dose reduction, the following was used: automated exposure control, adjustment of mA and/or kV according to patient size. COMPARISON: None. FINDINGS: Image quality: Excellent. Lung bases: Thin-walled 3.7 cm parenchymal cyst at the left lung base. Lung bases otherwise unremarkable. Heart: Tiny hiatal hernia. Mild cardiomegaly. URINARY: Right Kidney: No stones or hydronephrosis. Right Ureter: No hydroureter. Left Kidney: Mild left hydronephrosis. No significant perinephric inflammation. Left Ureter: Mild left hydroureter. 3 mm stone at the left distal ureter just above the ureterovesicular junction. Bladder: Partially decompressed urinary bladder. A portion of the urinary bladder wall is incorporated into a moderate sized right inguinal hernia. ABDOMEN: Liver: Mild hepatic steatosis. Gallbladder: Normal. Biliary ducts: Nondilated. Pancreas: Normal. Spleen: Normal size. Adrenal Glands: No nodules. Stomach and Bowel: Stomach and small bowel loops are decompressed. Normal quantity of stool present in the colon. Descending and sigmoid diverticulosis without acute diverticulitis. Normal appendix. Peritoneum: No abnormal intraperitoneal fluid. No free air. Ventral Wall: No hernia. Abdominal Nodes: Mildly prominent periportal lymph nodes, can be seen with steatosis. No other significant retroperitoneal or mesenteric adenopathy. Vessels: Aorta and inferior vena cava are normal in size. PELVIS: Pelvic Organs: Normal size prostate gland. Pelvic Nodes: Unremarkable. Miscellaneous: Moderate-sized right inguinal hernia containing fat and a small portion of bowel. Tiny fat containing left inguinal hernia. Bones: Multilevel degenerative disc and endplate changes throughout the spine. IMPRESSION: 1. 3 mm stone just above the left ureterovesicular junction causing mild left sided hydroureteronephrosis. 2. Moderate-sized fat and bladder containing right inguinal hernia. 3. Diverticulosis without acute diverticulitis. 4. Mild hepatic steatosis. 5. Final interpretation is concordant with preliminary report. Dictated by: Althea Forbes M.D. on 10/21/2022 at 8:39 Approved by: Althea Forbes M.D. on 10/21/2022 at 9:15
--- NOTE | 2022-10-21 04:33 | ED.ABDPAIN ---
HPI - Abdominal Pain General Chief Complaint: Back Pain/Injury Stated Complaint: abd pain Time Seen by Provider: 10/21/22 04:22 History of Present Illness HPI narrative: Patient is a 77-year-old male history of hypertension hyperlipidemia presenting today with left-sided pain radiating around to his abdomen. He is had going back pain over this feels different. He took Flexeril and ibuprofen prior to arrival but he overall is not feeling great. He feels very nauseous which is also abnormal. No vomiting. He any fever. Related Data Home Medications Medication Instructions Recorded Confirmed aspirin 81 mg tablet,delayed 81 mg PO DAILY 11/20/18 11/20/18 release atorvastatin 40 mg tablet 40 mg PO BEDTIME 11/20/18 11/20/18 hydrochlorothiazide 25 mg tablet 25 mg PO BEDTIME 11/20/18 11/20/18 losartan 25 mg tablet 25 mg PO DAILY 11/20/18 11/20/18 metoprolol tartrate 25 mg tablet 12.5 mg PO BID 11/20/18 11/20/18 tamsulosin 0.4 mg capsule 0.4 mg PO BID 11/20/18 11/20/18 Previous Rx's Medication Instructions Recorded hydrocodone 5 mg-acetaminophen 325 1 tab PO Q4-6H PRN pain #14 tabs 02/18/19 mg tablet hydrocodone 5 mg-acetaminophen 325 1 tab PO Q6H PRN pain #10 tabs 10/21/22 mg tablet ondansetron 4 mg disintegrating 4 mg PO Q8H PRN nausea and 10/21/22 tablet vomiting #10 tabs Allergies Allergy/AdvReac Type Severity Reaction Status Date / Time lisinopril AdvReac Mild COUGH Verified 11/20/18 07:34 Review of Systems Review of Systems ROS Unobtainable: All systems reviewed & are unremarkable except as noted in HPI and below Patient History Medical History (Updated 10/21/22 @ 05:39 by Sujey Solis DO) CAD (coronary artery disease) HLD (hyperlipidemia) HTN (hypertension) Prostate enlargement Social History household members: spouse Smoking Status: Never smoker Smoking Status: Never smoker Substance Use Type: does not use Exam Initial Vital Signs Initial Vital Signs: Vital Signs Temperature 97.0 F L 10/21/22 04:29 Pulse Rate 63 10/21/22 04:29 Respiratory Rate 22 10/21/22 04:29 Blood Pressure 143/56 H 10/21/22 04:29 Pulse Oximetry 98 10/21/22 04:29 Oxygen Delivery Method Room Air 10/21/22 04:29 GENERAL: Alert pleasant 77-year-old and in no acute distress. HEENT: Head atraumatic,EOMI, pupils reactive, face symmetric, moist mucous membrane CARDIOVASCULAR: Regular rate and rhythm without murmurs, rubs or gallops. RESPIRATORY: Breath sounds equal bilaterally, no wheezes rales or rhonchi. ABDOMEN: Soft, nontender. Normoactive bowel sounds all 4 quadrants. No guarding or rebound. : Mild left CVA tenderness EXTREMITIES: Normal range of motion, no clubbing or edema. Neurovascularly intact NEUROLOGICAL: Alert and oriented x4 SKIN: Warm, dry, no laceration, no petechiae, no rashes or lesions. Course Orders Ordered: Discontinued Medications Hydrocodone Bitart/Acetaminophen (Hydrocodone/Acet 5/325 Prepack) [facility] Stop: 10/21/22 05:45 Last Admin: 10/21/22 05:55 Dose: 1 bottle Documented By: ANITHA Ketorolac Tromethamine (Ketorolac 30 Mg/Ml Vial) 30 mg IV NOW ONE Stop: 10/21/22 04:34 Last Admin: 10/21/22 04:46 Dose: 30 mg Documented By: TENISHA Ondansetron HCl (Ondansetron 4 Mg/2 Ml Inj) 4 mg IV NOW ONE Stop: 10/21/22 04:34 Last Admin: 10/21/22 04:46 Dose: 4 mg Documented By: TENISHA Ondansetron HCl (Ondansetron 4 Mg Odt Prepack) 1 [facility] Stop: 10/21/22 05:45 Last Admin: 10/21/22 05:55 Dose: 1 bottle Documented By: ANITHA MDM - Abdominal Pain Lab Data 10/21/22 04:30 10/21/22 04:30 Labs: Lab Results 10/21/22 10/21/22 10/21/22 Range/Units 04:30 04:30 05:40 WBC 8.2 (4.5-11.0) X10^3/uL RBC 4.43 L (4.5-5.9) X10^6/uL Hgb 13.7 (13.5-17.5) g/dL Hct 39.5 L (41-53) % MCV 89.3 (80-100) fL MCH 30.9 (26-34) PG MCHC 34.6 (30-36) % RDW 14.0 (11.6-14.8) % Plt Count 184 (150-400) X10^3/uL Neut % (Auto) 59.9 (50-75) % Lymph % (Auto) 29.0 (25-40) % [place]t % (Auto) 8.8 (3-14) % Eos % (Auto) 1.8 L (2-4) % Baso % (Auto) 0.5 (0-2) % Neut # (Auto) 4900 (9857-9329) /uL Lymph # (Auto) 2400 (0606-2588) /uL Knott # (Auto) 700 (0-900) /uL Eos # (Auto) 200 (0-450) /uL Baso # (Auto) 0 (0-100) /uL Sodium 138 (137-145) mmol/L Potassium 3.7 (3.4-5.1) mmol/L Chloride 99 (98-107) mmol/L Carbon Dioxide 31 (22-32) mmol/L BUN 13 (9-20) mg/dL Creatinine 0.97 (0.66-1.25) mg/dL Estimated GFR > 60 (>60) mL/min BUN/Creatinine Ratio 13.4 (6-22) Glucose 132 H (80-110) mg/dL Calcium 8.5 (8.4-10.2) mg/dL Total Bilirubin 0.9 (0.2-1.3) mg/dL AST 33 (17-59) IU/L ALT 29 (<50) IU/L Alkaline Phosphatase 57 (38-126) U/L Total Protein 7.5 (6.3-8.2) g/dL Albumin 4.0 (3.5-5.0) g/dL Globulin 3.5 (1.7-4.1) g/dL Albumin/Globulin Ratio 1.1 (1.0-2.8) Lipase 287 (23-300) U/L Urine RBC 30-100/hpf H (0-5/HPF) Urine WBC None seen (0-5/HPF) Urine Bacteria None seen (None) Micro UA Comment * Point of care testing: Urine Dip Bedside Urine Glucose Negative Bedside Urine Bilirubin - Negative Bedside Urine Ketone - Negative Urine Specific [place] 1.025 Bedside Urine Occult Blood +++ Bedside Urine pH 6.0 Bedside Urine Protein - Negative Bedside Urine Urobilinogen 1+ 2mg Bedside Urine Nitrite - Negative Bedside Urine Leukocytes - Negative Esterase Imaging Data CT scan - abdomen/pelvis: Radiologist's Impression: Preliminary report: Mild left-sided hydro ureter or nephrosis with a 3 mm distal left ureteral calculus. Right equal containing fat and a portion of the urinary bladder diverticulosis without diverticulitis MDM Narrative Medical decision making narrative: The patient 77-year-old male history of hypertension hyperlipidemia presenting with left flank pain radiating around to his abdomen. Symptoms are certainly concerning for kidney stone. Pain is reproducible to palpation. Minimally hypertensive worsening for still here pressure 143/56. Suspect kidney stones rather than disecction, diverticulitis, pyelonephritis. Blood work is reassuring, no anemia no leukocytosis, no electrolyte abnormality no JON. CT confirms a 3 mm stone left. Urinalysis is negative for infection. His pain is very well controlled now. No indication for antibiotics. Discharge Plan Departure Patient Disposition: Home Clinical Impression: Kidney stone on left side Instructions: Kidney Stones -- Adult Activity Restrictions/Additional Instructions: * You've been diagnosed with kidney stone * What to do: Increase fluid intake, Strain urine, try to catch stone * Please follow-up with your primary care provider in the next 2-3 days, you may require urology consultation please discuss this with -If you should have fever, or pain is uncontrolled with medication at home or any other concerning symptoms return to ER for further evaluation MEDICATIONS-->sent to [facility] Take Motrin 600 mg every 8 hours as needed for pain Take Morganza every 6 hours if needed for severe pain Take Zofran every 4-6 hours if needed for nausea CONTROLLED SUBSTANCE DISCHARGE (Narcotoic/benzodiazepine) 1. You have been prescribed narcotic medications, it does have acetaminophen/Tylenol/paracetamol in it so do not take extra Tylenol or Tylenol containing products 2. Please understand that we cannot provide further refills of narcotics, benzodiazepines or controlled substances through the ED and her pain management will need to be through your provider. 3. While on these medications you cannot drive or operate heavy machinery. 4. You cannot sign legal documents or perform any duties such as this. 5. As long as you're taking opiate pain medications he should also be taking a stool softener such as Colace, Dulcolax, MiraLAX or prune juice, to help avoid constipation. Prescriptions: New hydrocodone-acetaminophen 5-325 mg tablet 1 tab PO Q6H PRN (Reason: pain) Qty: 10 0RF ondansetron 4 mg tablet,disintegrating 4 mg PO Q8H PRN (Reason: nausea and vomiting) Qty: 10 0RF No Action hydrocodone-acetaminophen 5-325 mg tablet 1 tab PO Q4-6H PRN (Reason: pain) Qty: 14 0RF atorvastatin 40 mg tablet 40 mg PO BEDTIME tamsulosin 0.4 mg capsule 0.4 mg PO BID hydrochlorothiazide 25 mg tablet 25 mg PO BEDTIME metoprolol tartrate 25 mg tablet 12.5 mg PO BID losartan 25 mg tablet 25 mg PO DAILY aspirin 81 mg Tablet,Delayed Release (Dr/Ec) 81 mg PO DAILY Referrals: Rebel Willson MD [Primary Care Provider] - Stand Alone Forms: Patient Portal/API
[2022-10-21 04:35] VITALS: BP 157/91; PULSE 57; O2SAT 99
[2022-10-21] MEDS: ONDANSETRON 4 MG/2 ML INJ IV (04:46)
[2022-10-21] MEDS: KETOROLAC 30 MG/ML VIAL IV (04:46)
[2022-10-21 04:50] LABS: Add Manual Diff / Slide Review NO; Basophils Absolute Auto 0 /uL (0-100); Basophils Percent Auto 0.5 % (0-2); Eosinophils Absolute Auto 200 /uL (0-450); Eosinophils Percent Auto 1.8 % (2-4); Hematocrit 39.5 % (41-53); Hemoglobin 13.7 g/dL (13.5-17.5); Lymphocytes Absolute Auto 2400 /uL (1100-4500); Mean Corpuscular HGB Conc 34.6 % (30-36); Mean Corpuscular Hemoglobin 30.9 PG (26-34); Mean Corpuscular Volume 89.3 fL (80-100); Monocytes Absolute Auto 700 /uL (0-900); Monocytes Percent Auto 8.8 % (3-14); Neutrophils Absolute Auto 4900 /uL (1500-7000); Neutrophils Percent Auto 59.9 % (50-75); Platelet Count 184 X10^3/uL (150-400); Red Blood Cell Count 4.43 X10^6/uL (4.5-5.9); White Blood Cell Count 8.2 X10^3/uL (4.5-11.0)
[2022-10-21 04:57] VITALS: BP 147/81; PULSE 56; O2SAT 97
[2022-10-21 05:00] VITALS: BP 145/83; PULSE 55; O2SAT 97
[2022-10-21 05:00] LABS: Alanine Aminotransferase 29 IU/L (<50); Albumin Globulin Ratio 1.1 (1.0-2.8); Alkaline Phosphatase 57 U/L (38-126); Aspartate Aminotransferase 33 IU/L (17-59); BUN Creatinine Ratio 13.4 (6-22); Bilirubin Total 0.9 mg/dL (0.2-1.3); Blood Urea Nitrogen 13 mg/dL (9-20); Calcium 8.5 mg/dL (8.4-10.2); Carbon Dioxide 31 mmol/L (22-32); Chloride 99 mmol/L (98-107); Estimated Glomerular Filt Rate > 60 mL/min (>60); Globulin 3.5 g/dL (1.7-4.1); Glucose 132 mg/dL (80-110); HEMOLYSIS 25 (0-50); Lipase 287 U/L (23-300); Potassium 3.7 mmol/L (3.4-5.1); Sodium 138 mmol/L (137-145); Total Protein 7.5 g/dL (6.3-8.2)
[2022-10-21 05:30] VITALS: BP 137/83; PULSE 55; O2SAT 97
[2022-10-21] MEDS: HYDROCODONE/ACET 5/325 PREPACK 1 BOTTLE MISC (05:55)
[2022-10-21] MEDS: ONDANSETRON 4 MG ODT PREPACK 1 BOTTLE MISC (05:55)
[2022-10-21 06:40] LABS: RBC Urine 30-100/HPF (0-5/HPF)
[2022-10-21 06:41] LABS: Bacteria Urine None Seen; WBC Urine None Seen (0-5/HPF)
== END 2022-10-21 06:03 | disposition home or self-care (01) ==
PROVIDERS: Emergency Provider Emergency Medicine; PCP Internal Medicine
DX: N20.0 Calculus of kidney (principal)
CPT/HCPCS: 36415; 74176; 80053; 81003; 81015; 83690; 85025; 87086; 99284; J1885; J2405

== ENCOUNTER → 2022-12-27 09:49 | Outpatient (CLI) | payer MEDICARE, OTHER, SELFPAY ==
[2022-12-27 12:16] LABS: Alanine Aminotransferase 27 IU/L (<50); Albumin 3.8 g/dL (3.5-5.0); Albumin Globulin Ratio 1.3 (1.0-2.8); Alkaline Phosphatase 67 U/L (38-126); Aspartate Aminotransferase 30 IU/L (17-59); BUN Creatinine Ratio 10.9 (6-22); Bilirubin Total 0.9 mg/dL (0.2-1.3); Blood Urea Nitrogen 11 mg/dL (9-20); Calcium 9.1 mg/dL (8.4-10.2); Carbon Dioxide 33 mmol/L (22-32); Chloride 101 mmol/L (98-107); Cholesterol 102 mg/dL (140-199); Estimated Glomerular Filt Rate > 60 mL/min (>60); Globulin 2.9 g/dL (1.7-4.1); Glucose 107 mg/dL (80-110); HDL Cholesterol 41 mg/dL (40-60); HEMOLYSIS < 15 (0-50); LDL Cholesterol Calculated 36 mg/dL (<100); Sodium 138 mmol/L (137-145); Total Protein 6.7 g/dL (6.3-8.2); Triglycerides 125 mg/dL (35-150)
== END ==
PROVIDERS: PCP Physician Assistant; Referring Provider Internal Medicine Cardiovascular Disease; Visit Provider Internal Medicine Cardiovascular Disease
DX: E78.5 Hyperlipidemia, unspecified (principal)
CPT/HCPCS: 36415; 80053; 80061

== ENCOUNTER 2023-02-09 09:01 | Observation (INO) | payer MEDICARE, OTHER, SELFPAY ==
[2023-02-09] VITALS (40 sets, daily range): BP systolic 108–161; BP diastolic 60–86; PULSE 48–68; RESP 13–24; TEMP 36.1–36.4; O2SAT 94–99; BMI 31.3
--- NOTE | 2023-02-09 09:10 | DI.RAD.S_ITS ---
PROCEDURE: XR CHEST 1V INDICATIONS: chest pain TECHNIQUE: One view of the chest was acquired. COMPARISON: [facility], [place], XR CHEST 2V, 11/08/2018, 16:27. [facility], [place], CHEST 1 VIEW, 02/05/2017, 8:17. FINDINGS: Surgical changes and devices: None. Lungs and pleura: Lungs are clear. No pleural effusions or pneumothorax. Mediastinum: Mediastinal contours appear normal. Heart size is normal. Bones and chest wall: No suspicious bony lesions. Overlying soft tissues appear unremarkable. IMPRESSION: No acute cardiopulmonary abnormality. Dictated by: Kade Herbert M.D. on 02/09/2023 at 9:50 Approved by: Kade Herbert M.D. on 02/09/2023 at 9:50
[2023-02-09] MEDS: NITROGLYCERIN 0.4 MG SL TAB SL (09:18)
[2023-02-09] MEDS: ASPIRIN 81 MG CHEW TAB 324 MG PO (09:18)
[2023-02-09] MEDS: SODIUM CHLORIDE 0.9% 1,000 ML 150 ML IV (09:19)
[2023-02-09 09:28] LABS: Add Manual Diff / Slide Review NO; Basophils Absolute Auto 100 /uL (0-100); Basophils Percent Auto 0.6 % (0-2); Eosinophils Absolute Auto 100 /uL (0-450); Eosinophils Percent Auto 1.5 % (2-4); Hematocrit 40.1 % (41-53); Hemoglobin 13.8 g/dL (13.5-17.5); Lymphocytes Absolute Auto 2200 /uL (1100-4500); Lymphocytes Percent Auto 26.8 % (25-40); Mean Corpuscular HGB Conc 34.5 % (30-36); Mean Corpuscular Hemoglobin 31.1 PG (26-34); Mean Corpuscular Volume 90.1 fL (80-100); Monocytes Absolute Auto 800 /uL (0-900); Monocytes Percent Auto 9.6 % (3-14); Neutrophils Absolute Auto 5100 /uL (1500-7000); Neutrophils Percent Auto 61.5 % (50-75); Platelet Count 171 X10^3/uL (150-400); Red Blood Cell Count 4.45 X10^6/uL (4.5-5.9); Red Cell Distribution Width 13.8 % (11.6-14.8); White Blood Cell Count 8.3 X10^3/uL (4.5-11.0)
[2023-02-09 09:36] LABS: INR 1.1 (0.9-1.3); Prothrombin Time 12.2 SECONDS (10.1-12.7)
[2023-02-09 09:41] LABS: Alanine Aminotransferase 30 IU/L (<50); Albumin Globulin Ratio 1.2 (1.0-2.8); Alkaline Phosphatase 57 U/L (38-126); Aspartate Aminotransferase 31 IU/L (17-59); Bilirubin Total 0.8 mg/dL (0.2-1.3); Blood Urea Nitrogen 13 mg/dL (9-20); Calcium 10.2 mg/dL (8.4-10.2); Carbon Dioxide 29 mmol/L (22-32); Chloride 103 mmol/L (98-107); Creatine Kinase 29 U/L (55-170); Estimated Glomerular Filt Rate > 60 mL/min (>60); Globulin 3.3 g/dL (1.7-4.1); Glucose 114 mg/dL (80-110); HEMOLYSIS < 15 (0-50); Lipase 197 U/L (23-300); Potassium 3.9 mmol/L (3.4-5.1); Sodium 138 mmol/L (137-145); Total Protein 7.3 g/dL (6.3-8.2)
[2023-02-09 09:50] LABS: NT-proBNP (BNP-Adult 18+) 36 pg/mL (<450)
[2023-02-09 09:52] LABS: Troponin I < 0.012 ng/mL (0.01-0.034)
[2023-02-09] MEDS: ACETAMINOPHEN 325 MG TABLET 650 MG PO (09:58)
--- NOTE | 2023-02-09 10:39 | ED_ITS ---
HPI - Chest Pain General Chief Complaint: Chest Pain Stated Complaint: chest pressure all night, heart burn Time Seen by Provider: 02/09/23 09:05 Source: patient Mode of arrival: Family Vehicle Limitations: no limitations History of Present Illness HPI narrative: 77-year-old male former smoker with history of coronary artery disease and prior stents presents with a chief complaint of retrosternal chest pressure which has been present over the course of the night. He denies any obvious provocation, palliation denies any radiation. He states that he is not particularly short of breath and denies nausea, vomiting or diaphoresis. He states that over the past few weeks he is felt more fatigued with minimal exertion than he might expect. He denies any fever or chills. He is had no cough. He states his discomfort at its most intense is a 3/10 and currently perhaps a 2/10 Related Data Home Medications Medication Instructions Recorded Confirmed aspirin 81 mg tablet,delayed 81 mg PO DAILY 11/20/18 11/20/18 release atorvastatin 40 mg tablet 40 mg PO BEDTIME 11/20/18 11/20/18 hydrochlorothiazide 25 mg tablet 25 mg PO BEDTIME 11/20/18 11/20/18 losartan 25 mg tablet 25 mg PO DAILY 11/20/18 11/20/18 metoprolol tartrate 25 mg tablet 12.5 mg PO BID 11/20/18 11/20/18 tamsulosin 0.4 mg capsule 0.4 mg PO BID 11/20/18 11/20/18 Previous Rx's Medication Instructions Recorded hydrocodone 5 mg-acetaminophen 325 1 tab PO Q4-6H PRN pain #14 tabs 02/18/19 mg tablet hydrocodone 5 mg-acetaminophen 325 1 tab PO Q6H PRN pain #10 tabs 10/21/22 mg tablet ondansetron 4 mg disintegrating 4 mg PO Q8H PRN nausea and 10/21/22 tablet vomiting #10 tabs Allergies Allergy/AdvReac Type Severity Reaction Status Date / Time lisinopril AdvReac Mild COUGH Verified 11/20/18 07:34 Review of Systems Review of Systems Narrative: GENERAL: Denies chills, fatigue, malaise, fever, sweats. HEENT: Denies sinus pain, ear pain, sore throat, difficulty swallowing, dizziness. RESPIRATORY: Denies dyspnea, cough, wheezing, hemoptysis, sputum. CARDIOVASCULAR: See HPI GASTROINTESTINAL: Denies nausea, vomiting, abdominal pain, diarrhea, constipation, melena. : Denies dysuria, frequency, incontinence, hematuria, urinary retention. MUSCULOSKELETAL: denies weakness, joint pain, or bony pain SKIN: Denies rash, skin lesions, or other NEUROLOGIC: Denies weakness, headache, numbness, change in speech, confusion, seizures, incoordination. PSYCHIATRIC: No concerning psychosocial issues. 12 point review of systems is negative except for those stated above Patient History Medical History (Updated 02/09/23 @ 15:05 by Prakash Hoffmann DO) CAD (coronary artery disease) HLD (hyperlipidemia) HTN (hypertension) Prostate enlargement Social History household members: spouse Smoking Status: Former smoker Smoking Status: Former smoker tobacco type: cigarettes alcohol intake frequency: 0-2 drinks per day Substance Use Type: does not use Exam Narrative Exam Narrative: GENERAL: [77] year old patient appears stated age. Well-developed patient, in mild distress. HEAD: Atraumatic. Normocephalic. EYES: Pupils equal round and reactive. Extraocular motions intact. No scleral icterus. No injection or drainage. ENT: Nose without bleeding, purulent drainage. Throat without erythema, tonsillar hypertrophy or exudate. Airway patent. NECK: Trachea midline. Non tender CARDIOVASCULAR: Regular rate and rhythm without murmurs, gallops, or rubs. RESPIRATORY: Clear to auscultation. Breath sounds equal bilaterally. No wheezes, rales, or rhonchi. GASTROINTESTINAL: Abdomen soft, non-tender, nondistended. EXTREMITIES: No edema or joint tenderness. BACK: Nontender without deformity or crepitance. No flank tenderness. NEURO: AOx3. SKIN: No rash or erythema of visible areas Initial Vital Signs Initial Vital Signs: Vital Signs Temperature 97.6 F 02/09/23 09:08 Pulse Rate 56 L 02/09/23 09:08 Respiratory Rate 18 02/09/23 09:08 Blood Pressure 145/80 H 02/09/23 09:08 Pulse Oximetry 97 02/09/23 09:08 Oxygen Delivery Method Room Air 02/09/23 09:08 Course Orders Ordered: ED Orders 02/09/23 09:10 XR chest 1V Stat EKG-12 Lead Stat 02/09/23 09:18 Complete Blood Count AUTO DIFF Stat Comprehensive Metabolic Panel Stat Lipase Stat NT-proBNP (BNP-Adult 18+) Stat Prothrombin Time INR Stat Troponin & CK Cardiac Panel Stat 02/09/23 10:11 EKG-12 Lead Routine 02/09/23 12:17 Troponin I Stat Sodium Chloride (Normal Saline 0.9%) 1,000 mls @ 150 mls/hr IV CONT AUGUSTIN Last Admin: 02/09/23 09:19 Dose: 150 mls/hr Documented By: SRUTHI Nitroglycerin (Nitroglycerin 0.4 Mg Sl Tab) 0.4 mg SL [id number] PRN PRN Reason: Chest Pain Last Admin: 02/09/23 09:18 Dose: 0.4 mg Documented By: SRUTHI Discontinued Medications Acetaminophen (Acetaminophen 325 Mg Tablet) 650 mg PO NOW ONE Stop: 02/09/23 09:56 Last Admin: 02/09/23 09:58 Dose: 650 mg Documented By: MARIELENA Aspirin (Aspirin 81 Mg Chew Tab) 324 mg PO NOW ONE Stop: 02/09/23 09:11 Last Admin: 02/09/23 09:18 Dose: 243 mg Documented By: SRUTHI Reevaluation(s) Reevaluation #1: Complete resolution symptoms after nitro Consultations Consultation #1: Discussed with cardiology. After discussions patient's clinical course including today's history and physical, we sure the opinion that though there is no indication for transfer that hospitalization for stress test and echo as most appropriate course Consultation #2: Hospitalist happy to accept Vital Signs Vital signs: Vital Signs - 8 hr 02/09/23 09:08 02/09/23 09:14 02/09/23 09:25 Temperature 97.6 F Pulse Rate 56 L 56 L Respiratory Rate 18 19 Blood Pressure 145/80 H 132/60 Pulse Oximetry 97 96 Oxygen Delivery Method Room Air 02/09/23 09:25 02/09/23 09:30 02/09/23 09:30 Temperature Pulse Rate 68 68 Respiratory Rate 18 21 Blood Pressure 108/65 Pulse Oximetry 94 95 Oxygen Delivery Method 02/09/23 09:35 02/09/23 09:35 02/09/23 09:40 Temperature Pulse Rate 67 Respiratory Rate 18 Blood Pressure 124/80 124/76 Pulse Oximetry 94 Oxygen Delivery Method 02/09/23 09:40 02/09/23 09:45 02/09/23 09:45 Temperature Pulse Rate 63 59 L Respiratory Rate 17 18 Blood Pressure 119/75 Pulse Oximetry 95 96 Oxygen Delivery Method 02/09/23 09:50 02/09/23 09:50 02/09/23 09:55 Temperature Pulse Rate 53 L Respiratory Rate 23 Blood Pressure 119/73 120/73 Pulse Oximetry 96 Oxygen Delivery Method 02/09/23 09:55 02/09/23 10:00 02/09/23 10:00 Temperature Pulse Rate 52 L 52 L Respiratory Rate 16 15 Blood Pressure 121/69 Pulse Oximetry 95 96 Oxygen Delivery Method 02/09/23 10:05 02/09/23 10:05 02/09/23 10:10 Temperature Pulse Rate 48 L 50 L Respiratory Rate 15 24 Blood Pressure 119/73 Pulse Oximetry 96 97 Oxygen Delivery Method 02/09/23 10:10 02/09/23 10:15 02/09/23 10:15 Temperature Pulse Rate 50 L Respiratory Rate 14 Blood Pressure 119/73 115/74 Pulse Oximetry 96 Oxygen Delivery Method 02/09/23 10:20 02/09/23 10:20 02/09/23 10:25 Temperature Pulse Rate 49 L Respiratory Rate 15 Blood Pressure 119/75 120/72 Pulse Oximetry 96 Oxygen Delivery Method 02/09/23 10:25 02/09/23 10:30 02/09/23 10:30 Temperature Pulse Rate 49 L 50 L Respiratory Rate 15 15 Blood Pressure 113/70 Pulse Oximetry 96 96 Oxygen Delivery Method 02/09/23 10:36 02/09/23 10:36 02/09/23 10:40 Temperature Pulse Rate 54 L Respiratory Rate 14 Blood Pressure 119/68 117/70 Pulse Oximetry 97 Oxygen Delivery Method 02/09/23 10:40 02/09/23 10:45 02/09/23 10:45 Temperature Pulse Rate 51 L 52 L Respiratory Rate 15 14 Blood Pressure 123/77 Pulse Oximetry 97 98 Oxygen Delivery Method 02/09/23 10:50 02/09/23 10:50 02/09/23 10:55 Temperature Pulse Rate 52 L 54 L Respiratory Rate 14 20 Blood Pressure 130/76 Pulse Oximetry 97 95 Oxygen Delivery Method 02/09/23 10:55 02/09/23 11:00 02/09/23 11:00 Temperature Pulse Rate 50 L Respiratory Rate 15 Blood Pressure 124/73 123/78 Pulse Oximetry 97 Oxygen Delivery Method 02/09/23 11:05 02/09/23 11:05 02/09/23 11:10 Temperature Pulse Rate 53 L Respiratory Rate 15 Blood Pressure 134/74 131/75 Pulse Oximetry 96 Oxygen Delivery Method 02/09/23 11:10 02/09/23 11:15 02/09/23 11:15 Temperature Pulse Rate 53 L 54 L Respiratory Rate 15 14 Blood Pressure 130/74 Pulse Oximetry 97 97 Oxygen Delivery Method 02/09/23 11:20 02/09/23 11:20 02/09/23 11:25 Temperature Pulse Rate 54 L Respiratory Rate 15 Blood Pressure 129/77 129/79 Pulse Oximetry 98 Oxygen Delivery Method 02/09/23 11:25 02/09/23 11:30 02/09/23 11:30 Temperature Pulse Rate 55 L 55 L Respiratory Rate 14 14 Blood Pressure 128/76 Pulse Oximetry 97 97 Oxygen Delivery Method 02/09/23 12:00 02/09/23 12:01 02/09/23 12:01 Temperature Pulse Rate 56 L 57 L Respiratory Rate 16 16 Blood Pressure 145/78 H Pulse Oximetry 96 96 Oxygen Delivery Method 02/09/23 12:30 02/09/23 12:30 02/09/23 13:00 Temperature Pulse Rate 56 L Respiratory Rate 19 Blood Pressure 153/86 H 148/76 H Pulse Oximetry 96 Oxygen Delivery Method 02/09/23 13:00 02/09/23 13:30 02/09/23 13:30 Temperature Pulse Rate 57 L 57 L Respiratory Rate 13 16 Blood Pressure 161/83 H Pulse Oximetry 96 96 Oxygen Delivery Method 02/09/23 14:00 02/09/23 14:00 Temperature Pulse Rate 60 Respiratory Rate 20 Blood Pressure 160/83 H Pulse Oximetry 97 Oxygen Delivery Method MDM - Chest Pain Lab Data 02/09/23 09:18 02/09/23 09:18 Labs: Lab Results 02/09/23 02/09/23 02/09/23 Range/Units 09:18 09:18 09:18 WBC 8.3 (4.5-11.0) X10^3/uL RBC 4.45 L (4.5-5.9) X10^6/uL Hgb 13.8 (13.5-17.5) g/dL Hct 40.1 L (41-53) % MCV 90.1 (80-100) fL MCH 31.1 (26-34) PG MCHC 34.5 (30-36) % RDW 13.8 (11.6-14.8) % Plt Count 171 (150-400) X10^3/uL Neut % (Auto) 61.5 (50-75) % Lymph % (Auto) 26.8 (25-40) % Armstrong % (Auto) 9.6 (3-14) % Eos % (Auto) 1.5 L (2-4) % Baso % (Auto) 0.6 (0-2) % Neut # (Auto) 5100 (3076-3561) /uL Lymph # (Auto) 2200 (6254-5871) /uL Armstrong # (Auto) 800 (0-900) /uL Eos # (Auto) 100 (0-450) /uL Baso # (Auto) 100 (0-100) /uL PT 12.2 (10.1-12.7) SECONDS INR 1.1 (0.9-1.3) Sodium 138 (137-145) mmol/L Potassium 3.9 (3.4-5.1) mmol/L Chloride 103 (98-107) mmol/L Carbon Dioxide 29 (22-32) mmol/L BUN 13 (9-20) mg/dL Creatinine 0.93 (0.66-1.25) mg/dL Estimated GFR > 60 (>60) mL/min BUN/Creatinine Ratio 14.0 (6-22) Glucose 114 H (80-110) mg/dL Calcium 10.2 (8.4-10.2) mg/dL Total Bilirubin 0.8 (0.2-1.3) mg/dL AST 31 (17-59) IU/L ALT 30 (<50) IU/L Alkaline Phosphatase 57 (38-126) U/L Total Creatine Kinase 29 L (55-170) U/L Troponin I < 0.012 (0.01-0.034) ng/mL NT-Pro-B Natriuret Pep (<450) pg/mL Total Protein 7.3 (6.3-8.2) g/dL Albumin 4.0 (3.5-5.0) g/dL Globulin 3.3 (1.7-4.1) g/dL Albumin/Globulin Ratio 1.2 (1.0-2.8) Lipase 197 (23-300) U/L 02/09/23 02/09/23 Range/Units 09:18 12:17 WBC (4.5-11.0) X10^3/uL RBC (4.5-5.9) X10^6/uL Hgb (13.5-17.5) g/dL Hct (41-53) % MCV (80-100) fL MCH (26-34) PG MCHC (30-36) % RDW (11.6-14.8) % Plt Count (150-400) X10^3/uL Neut % (Auto) (50-75) % Lymph % (Auto) (25-40) % Armstrong % (Auto) (3-14) % Eos % (Auto) (2-4) % Baso % (Auto) (0-2) % Neut # (Auto) (1252-9402) /uL Lymph # (Auto) (9944-8852) /uL Armstrong # (Auto) (0-900) /uL Eos # (Auto) (0-450) /uL Baso # (Auto) (0-100) /uL PT (10.1-12.7) SECONDS INR (0.9-1.3) Sodium (137-145) mmol/L Potassium (3.4-5.1) mmol/L Chloride (98-107) mmol/L Carbon Dioxide (22-32) mmol/L BUN (9-20) mg/dL Creatinine (0.66-1.25) mg/dL Estimated GFR (>60) mL/min BUN/Creatinine Ratio (6-22) Glucose (80-110) mg/dL Calcium (8.4-10.2) mg/dL Total Bilirubin (0.2-1.3) mg/dL AST (17-59) IU/L ALT (<50) IU/L Alkaline Phosphatase (38-126) U/L Total Creatine Kinase (55-170) U/L Troponin I < 0.012 (0.01-0.034) ng/mL NT-Pro-B Natriuret Pep 36 (<450) pg/mL Total Protein (6.3-8.2) g/dL Albumin (3.5-5.0) g/dL Globulin (1.7-4.1) g/dL Albumin/Globulin Ratio (1.0-2.8) Lipase (23-300) U/L Discharge Plan Departure Patient Disposition: Admitted as Observation Clinical Impression: Chest pain Admit Date/Time: 02/09/23 14:15 Admit Provider: Jorge Gould
[2023-02-09 12:50] LABS: Troponin I < 0.012 ng/mL (0.01-0.034)
--- NOTE | 2023-02-09 16:53 | PM.HP.1 ---
History of Present Illness History of Present Illness Date Patient Seen: 02/09/23 Time Patient Seen: 16:53 Chief complaint: chest pressure all night, heart burn Narrative: This is a 77 year old male with PMH of HTN, CAD w/ stent placement 12 years ago who presents with chest pressure that awoke him from sleep. Patient states he awoke with a moderate intensity pressure in the morning that would not go away. States it felt similar but less intense to what his previous NM presented as 12 years ago. He took some tums overnight but did not help. He did get some nitro with mild improvement, and now the pressure is intermittently returning but is not currently present. He denies recent fever, chills, cough, LE edema or weight gain. He denied radiation of the pressure, and had no diaphroesis, nausea, vomiting or abdominal pain. In the emergency room, patient was given 1 dose SL nitro with mild improvement as noted above. Vital signs were unremarkable. Laboratory evaluation was also unremarkable including CBC, CMP, and troponin level x2. EKG showed sinus bradycardia. CXR was unremarkable. ER discussed with cardiology, recommended echo and stress testing for further risk stratification. 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 [facility] Medical History CAD (coronary artery disease) HLD (hyperlipidemia) HTN (hypertension) Prostate enlargement Surgical History H/O heart artery stent Social History household members: spouse Smoking Status: Former smoker alcohol intake: current Meds Home Medications and Allergies Home Medications Medication Instructions Recorded Confirmed Type aspirin 81 mg tablet,delayed 81 mg PO DAILY 11/20/18 02/09/23 History release atorvastatin 40 mg tablet 40 mg PO BEDTIME 11/20/18 02/09/23 History hydrochlorothiazide 25 mg tablet 25 mg PO BEDTIME 11/20/18 02/09/23 History losartan 25 mg tablet 25 mg PO DAILY 11/20/18 02/09/23 History metoprolol tartrate 25 mg tablet 12.5 mg PO BID 11/20/18 02/09/23 History hydrocodone 5 mg-acetaminophen 325 1 tab PO Q6H PRN pain #10 tabs 10/21/22 02/09/23 Rx mg tablet ondansetron 4 mg disintegrating 4 mg PO Q8H PRN nausea and 10/21/22 02/09/23 Rx tablet vomiting #10 tabs Allergies Allergy/AdvReac Type Severity Reaction Status Date / Time lisinopril AdvReac Mild COUGH Verified 11/20/18 07:34 Review of Systems Review of Systems Narrative: All other systems reviewed with the patient and are negative unless otherwise stated. Exam Vital Signs (past 8 hours): - 02/09/23 09:08 02/09/23 09:14 02/09/23 09:25 Temperature 97.6 F Pulse Rate 56 L 56 L Respiratory Rate 18 19 Blood Pressure 145/80 H 132/60 Pulse Oximetry 97 96 Oxygen Delivery Method Room Air Oxygen Flow Rate 02/09/23 09:25 02/09/23 09:30 02/09/23 09:30 Temperature Pulse Rate 68 68 Respiratory Rate 18 21 Blood Pressure 108/65 Pulse Oximetry 94 95 Oxygen Delivery Method Oxygen Flow Rate 02/09/23 09:35 02/09/23 09:35 02/09/23 09:40 Temperature Pulse Rate 67 Respiratory Rate 18 Blood Pressure 124/80 124/76 Pulse Oximetry 94 Oxygen Delivery Method Oxygen Flow Rate 02/09/23 09:40 02/09/23 09:45 02/09/23 09:45 Temperature Pulse Rate 63 59 L Respiratory Rate 17 18 Blood Pressure 119/75 Pulse Oximetry 95 96 Oxygen Delivery Method Oxygen Flow Rate 02/09/23 09:50 02/09/23 09:50 02/09/23 09:55 Temperature Pulse Rate 53 L Respiratory Rate 23 Blood Pressure 119/73 120/73 Pulse Oximetry 96 Oxygen Delivery Method Oxygen Flow Rate 02/09/23 09:55 02/09/23 10:00 02/09/23 10:00 Temperature Pulse Rate 52 L 52 L Respiratory Rate 16 15 Blood Pressure 121/69 Pulse Oximetry 95 96 Oxygen Delivery Method Oxygen Flow Rate 02/09/23 10:05 02/09/23 10:05 02/09/23 10:10 Temperature Pulse Rate 48 L 50 L Respiratory Rate 15 24 Blood Pressure 119/73 Pulse Oximetry 96 97 Oxygen Delivery Method Oxygen Flow Rate 02/09/23 10:10 02/09/23 10:15 02/09/23 10:15 Temperature Pulse Rate 50 L Respiratory Rate 14 Blood Pressure 119/73 115/74 Pulse Oximetry 96 Oxygen Delivery Method Oxygen Flow Rate 02/09/23 10:20 02/09/23 10:20 02/09/23 10:25 Temperature Pulse Rate 49 L Respiratory Rate 15 Blood Pressure 119/75 120/72 Pulse Oximetry 96 Oxygen Delivery Method Oxygen Flow Rate 02/09/23 10:25 02/09/23 10:30 02/09/23 10:30 Temperature Pulse Rate 49 L 50 L Respiratory Rate 15 15 Blood Pressure 113/70 Pulse Oximetry 96 96 Oxygen Delivery Method Oxygen Flow Rate 02/09/23 10:36 02/09/23 10:36 02/09/23 10:40 Temperature Pulse Rate 54 L Respiratory Rate 14 Blood Pressure 119/68 117/70 Pulse Oximetry 97 Oxygen Delivery Method Oxygen Flow Rate 02/09/23 10:40 02/09/23 10:45 02/09/23 10:45 Temperature Pulse Rate 51 L 52 L Respiratory Rate 15 14 Blood Pressure 123/77 Pulse Oximetry 97 98 Oxygen Delivery Method Oxygen Flow Rate 02/09/23 10:50 02/09/23 10:50 02/09/23 10:55 Temperature Pulse Rate 52 L 54 L Respiratory Rate 14 20 Blood Pressure 130/76 Pulse Oximetry 97 95 Oxygen Delivery Method Oxygen Flow Rate 02/09/23 10:55 02/09/23 11:00 02/09/23 11:00 Temperature Pulse Rate 50 L Respiratory Rate 15 Blood Pressure 124/73 123/78 Pulse Oximetry 97 Oxygen Delivery Method Oxygen Flow Rate 02/09/23 11:05 02/09/23 11:05 02/09/23 11:10 Temperature Pulse Rate 53 L Respiratory Rate 15 Blood Pressure 134/74 131/75 Pulse Oximetry 96 Oxygen Delivery Method Oxygen Flow Rate 02/09/23 11:10 02/09/23 11:15 02/09/23 11:15 Temperature Pulse Rate 53 L 54 L Respiratory Rate 15 14 Blood Pressure 130/74 Pulse Oximetry 97 97 Oxygen Delivery Method Oxygen Flow Rate 02/09/23 11:20 02/09/23 11:20 02/09/23 11:25 Temperature Pulse Rate 54 L Respiratory Rate 15 Blood Pressure 129/77 129/79 Pulse Oximetry 98 Oxygen Delivery Method Oxygen Flow Rate 02/09/23 11:25 02/09/23 11:30 02/09/23 11:30 Temperature Pulse Rate 55 L 55 L Respiratory Rate 14 14 Blood Pressure 128/76 Pulse Oximetry 97 97 Oxygen Delivery Method Oxygen Flow Rate 02/09/23 12:00 02/09/23 12:01 02/09/23 12:01 Temperature Pulse Rate 56 L 57 L Respiratory Rate 16 16 Blood Pressure 145/78 H Pulse Oximetry 96 96 Oxygen Delivery Method Oxygen Flow Rate 02/09/23 12:30 02/09/23 12:30 02/09/23 13:00 Temperature Pulse Rate 56 L Respiratory Rate 19 Blood Pressure 153/86 H 148/76 H Pulse Oximetry 96 Oxygen Delivery Method Oxygen Flow Rate 02/09/23 13:00 02/09/23 13:30 02/09/23 13:30 Temperature Pulse Rate 57 L 57 L Respiratory Rate 13 16 Blood Pressure 161/83 H Pulse Oximetry 96 96 Oxygen Delivery Method Oxygen Flow Rate 02/09/23 14:00 02/09/23 14:00 02/09/23 14:30 Temperature Pulse Rate 60 55 L Respiratory Rate 20 16 Blood Pressure 160/83 H Pulse Oximetry 97 96 Oxygen Delivery Method Oxygen Flow Rate 02/09/23 14:31 02/09/23 14:31 02/09/23 15:13 Temperature Pulse Rate 55 L Respiratory Rate 15 Blood Pressure 146/75 H Pulse Oximetry 97 98 Oxygen Delivery Method Room Air Oxygen Flow Rate 02/09/23 15:13 Temperature 96.9 F L Pulse Rate 56 L Respiratory Rate 18 Blood Pressure 142/79 H Pulse Oximetry 98 Oxygen Delivery Method Oxygen Flow Rate 0 Oxygen Delivery Method Room Air Oxygen Flow Rate 0 Narrative Exam Narrative: General:? Patient is well developed and well nourished, in no distress at this time. HEENT:? Normocephalic, atraumatic, extraocular muscles intact, oral pharynx is clear and mucous membranes are moist. Neck: supple and symmetric, trachea is midline, no cervical adenopathy. Negative for JVD Chest:? Normal AP diameter and contour without kyphoscoliosis, no tachypnea, equal chest rise bilaterally. Lungs:? CTA b/l no wheezing rhonchi or rales. Cardio:?RRR no m/r/g. Abdomen: S NT ND. No CVA tenderness. Musculoskeletal:? Muscle strength and tone are equal within normal limits, no deformity. Extremities: No edema or joint effusions. No cyanosis or clubbing. Skin:? Pale,? Warm to touch,dry and intact without rashes, ulcerations or petechiae.? Neuro:? Alert and orientated x3,? sensation to touch intact in all extremities, no gross deficits noted of cranial nerves. Psych:? Patient has a well-kept appearance, appropriate affect, mental status attitude thought context and judgment are appropriate for age. Objective ECG Impression: sinus bradycardia, no acute ischemia as interpreted by in Labs 02/09/23 09:18 02/09/23 09:18 Labs: Laboratory Results - last 24 hr 02/09/23 02/09/23 02/09/23 09:18 09:18 09:18 WBC 8.3 RBC 4.45 L Hgb 13.8 Hct 40.1 L MCV 90.1 MCH 31.1 MCHC 34.5 RDW 13.8 Plt Count 171 Neut % (Auto) 61.5 Lymph % (Auto) 26.8 [place] % (Auto) 9.6 Eos % (Auto) 1.5 L Baso % (Auto) 0.6 Neut # (Auto) 5100 Lymph # (Auto) 2200 [place] # (Auto) 800 Eos # (Auto) 100 Baso # (Auto) 100 PT 12.2 INR 1.1 Sodium 138 Potassium 3.9 Chloride 103 Carbon Dioxide 29 BUN 13 Creatinine 0.93 Estimated GFR > 60 BUN/Creatinine Ratio 14.0 Glucose 114 H Calcium 10.2 Total Bilirubin 0.8 AST 31 ALT 30 Alkaline Phosphatase 57 Total Creatine Kinase 29 L Troponin I < 0.012 NT-Pro-B Natriuret Pep Total Protein 7.3 Albumin 4.0 Globulin 3.3 Albumin/Globulin Ratio 1.2 Lipase 197 02/09/23 02/09/23 09:18 12:17 WBC RBC Hgb Hct MCV MCH MCHC RDW Plt Count Neut % (Auto) Lymph % (Auto) [place] % (Auto) Eos % (Auto) Baso % (Auto) Neut # (Auto) Lymph # (Auto) [place] # (Auto) Eos # (Auto) Baso # (Auto) PT INR Sodium Potassium Chloride Carbon Dioxide BUN Creatinine Estimated GFR BUN/Creatinine Ratio Glucose Calcium Total Bilirubin AST ALT Alkaline Phosphatase Total Creatine Kinase Troponin I < 0.012 NT-Pro-B Natriuret Pep 36 Total Protein Albumin Globulin Albumin/Globulin Ratio Lipase Assessment & Plan Assessment & Plan narrative: 1. Chest pain, acute in setting of known CAD - further risk stratification recommended with stress testing. Will order non-nuclear treadmill. - TTE ordered - continue home asa and statin - check 3rd troponin given recent onset, at 8 hour ritesh for further evaluation of possible ACS - possible gerd, start ppi 2. HTN, chronic - continue home medications, hold beta jennifer prior to stress testing tomorrow AM 3. Obesity, BMI 31.3 - increases patient's risk for CAD and atherosclerosis, contributing to need for further risk stratification. Code: Full, surrogate is patient's spouse DVT: lovenox daily Dispo: Observation, probable discharge home if stress testing and echo are unremarkable. I have utilized all available immediate resources to obtain, update, or review the patient's current medications. Additional history obtained via ER provider and patient's spouse at bedside. Discussed plan of care, and reviewed patient's imaging, EKG, and lab studies personally. Follow up testing as ordered and discussed above. Quality VTE Deep Vein Thrombosis/Pulmonary Embolism Present on Admission: No
--- NOTE | 2023-02-09 16:59 | DI.ECHO.S_ITS ---
[facility]---------+ [facility] +---------+ : : [address] [place] : : : : [id number] : : : : Phone: [phone]+ Echocardiogram Report + + :Name: ANDRÉS JOHNSON Study Date: 02/10/2023 Height: 74 in : :[facility] ReadingLocation: Weight: 243 lb : : Gender: Male BSA: 2.4 m2 : :: 1945 Age: 77 yrs BP: 111/71 mmHg: :Reason For Study: CHEST PAIN : :Ordering Physician: STEFANIE, : :KIT ALCARAZ Performed By: Deborah Hinojosa : :Referring: KIT WATTS : + + Interpretation Summary 1) Normal left ventricular thickness, size, wall motion, and systolic function (EF 55-60%). 2) Normal right ventricular size and function. 3) No significant valvular abnormalities. 4) The ascending aorta is mild-moderately enlarged at 4.3cm. 5) Compared to the Echo done 08/29/2021, no significant change. Procedure: A two-dimensional transthoracic echocardiogram with color flow and Doppler was performed. The study quality was technically adequate. A contrast injection of Definity was performed to improve assessment of LV function. Comparison is made with the echocardiogram of 08/29/2021. The patient was in sinus rhythm with heart rates between 59-71 bpm during the exam. Left Ventricle: The left ventricle is normal in size and wall thickness. The ejection fraction is estimated to be 55-60%. Left ventricular systolic function appears normal without focal wall motion abnormalities. Diastolic parameters suggest a relaxation abnormality of the left ventricle, consistent with probable normal filling pressures. Right Ventricle: The right ventricle is normal in size and function. Atria: The left atrial size is normal. Right atrial size is normal. There is no Doppler evidence for an interatrial shunt. Mitral Valve: The mitral valve is normal in structure and function. There is trace mitral regurgitation. Aortic Valve: The aortic valve is trileaflet. The aortic valve is slightly calcified. There is no aortic valve stenosis. No aortic regurgitation is present. Tricuspid Valve: The tricuspid valve is normal in structure and function. There is trace tricuspid regurgitation. The right ventricular systolic pressure is estimated to be at least 19 mmHg based on an estimated right atrial pressure of 3 mm Hg. Pulmonic Valve: The pulmonic valve leaflets are thin and pliable; valve motion is normal. There is mild pulmonic regurgitation. Great Vessels: The aortic root is normal size. The ascending aorta is mild- moderately enlarged. The IVC is of normal diameter and collapses greater than 50% with a sniff. This suggests a low right atrial pressure of 3 mm Hg. Pericardium/ Pleura There is no pericardial effusion. There is no pleural effusion. MMode/2D Measurements & Calculations LVIDd: 5.4 cm LVOT diam: 2.4 cm LVIDs: 3.5 cm Ao root diam: 3.6 cm FS: 34.8 % asc Aorta Diam: 4.3 cm EPSS: 1.6 cm Ao Arch Diam (Prox Trans): 2.7 cm IVSd: 0.80 cm LVPWd: 0.76 cm LV atkins. diameter/BSA (cm/m^2): 2.3 LV sys. diameter/BSA (cm/m^2): 1.5 LA A2 area: 26.3 cm2 RA long axis: 5.1 cm LA A4 area: 19.4 cm2 RA area: 14.0 cm2 LA length (vol): 5.9 cm RA vol: 32.8 ml LA vol: 73.5 ml RA : 13.9 ml/m2 LA vol index: 31.1 ml/m2 IVC diam: 1.9 cm RVD1 (basal): 4.0 cm RVD2 (mid): 3.3 cm TAPSE: 2.0 cm Doppler Measurements & Calculations Ao V2 max: 153.6 cm/sec LVOT Max Keith: 91.3 cm/sec Ao V2 mean: 104.7 cm/sec LV V1 max P.3 mmHg Ao max P.4 mmHg LV V1 VTI: 20.8 cm Ao mean P.9 mmHg JOSSIE(I,D): 2.7 cm2 Ao V2 VTI: 35.1 cm JOSSIE(V,D): 2.7 cm2 sev ratio: 0.59 JOSSIE indexed to BSA (cm^2/m^2): 1.1 MV E max keith: 54.6 cm/sec TR max keith: 199.8 cm/sec MV A max keith: 96.1 cm/sec TR max P.0 mmHg MV E/A: 0.57 PA V2 max: 87.4 cm/sec Med Peak E' Keith: 4.7 cm/sec PA V2 mean: 60.0 cm/sec E/E' med: 11.6 PA mean P.6 mmHg Lat Peak E' Keith: 6.9 cm/sec PA pr(Accel): 29.3 mmHg E/E' lat: 8.0 E/e' average: 9.8 MV dec time: 0.24 sec Pulm A Revs Keith: 21.5 cm/sec SV(LVOT): 94.0 ml Pulm A Revs Dur: 0.17 sec Reading Physician:09:06 AM
[2023-02-09 18:26] LABS: Troponin I < 0.012 ng/mL (0.01-0.034)
[2023-02-09] MEDS: ATORVASTATIN 20 MG TABLET 40 MG PO (20:33)
[2023-02-09] MEDS: hydroCHLOROthiazide 25 MG TABLET PO (20:33)
[2023-02-09] MEDS: METOPROLOL IR 25 MG TABLET 12.5 MG PO (20:33)
[2023-02-10] VITALS (11 sets, daily range): BP systolic 110–137; BP diastolic 66–79; PULSE 58–70; RESP 16–20; TEMP 36.3–37.2; O2SAT 95–98
[2023-02-10] MEDS: ACETAMINOPHEN 325 MG TABLET 650 MG PO (03:21)
[2023-02-10 05:58] LABS: Add Manual Diff / Slide Review NO; Basophils Absolute Auto 0 /uL (0-100); Basophils Percent Auto 0.4 % (0-2); Eosinophils Absolute Auto 100 /uL (0-450); Eosinophils Percent Auto 1.7 % (2-4); Hematocrit 36.9 % (41-53); Hemoglobin 12.8 g/dL (13.5-17.5); Lymphocytes Absolute Auto 1900 /uL (1100-4500); Mean Corpuscular HGB Conc 34.6 % (30-36); Mean Corpuscular Hemoglobin 30.9 PG (26-34); Mean Corpuscular Volume 89.2 fL (80-100); Monocytes Absolute Auto 700 /uL (0-900); Monocytes Percent Auto 8.9 % (3-14); Neutrophils Absolute Auto 4700 /uL (1500-7000); Platelet Count 144 X10^3/uL (150-400); Red Blood Cell Count 4.13 X10^6/uL (4.5-5.9); Red Cell Distribution Width 13.8 % (11.6-14.8); White Blood Cell Count 7.4 X10^3/uL (4.5-11.0)
[2023-02-10 06:05] LABS: Alanine Aminotransferase 27 IU/L (<50); Albumin 3.4 g/dL (3.5-5.0); Albumin Globulin Ratio 1.1 (1.0-2.8); Alkaline Phosphatase 52 U/L (38-126); Aspartate Aminotransferase 28 IU/L (17-59); BUN Creatinine Ratio 15.8 (6-22); Blood Urea Nitrogen 15 mg/dL (9-20); Calcium 8.6 mg/dL (8.4-10.2); Carbon Dioxide 29 mmol/L (22-32); Chloride 102 mmol/L (98-107); Cholesterol 107 mg/dL (140-199); Estimated Glomerular Filt Rate > 60 mL/min (>60); Globulin 3.1 g/dL (1.7-4.1); Glucose 113 mg/dL (80-110); HDL Cholesterol 33 mg/dL (40-60); HEMOLYSIS < 15 (0-50); LDL Cholesterol Calculated 38 mg/dL (<100); Magnesium 1.7 mg/dL (1.6-2.3); Potassium 3.7 mmol/L (3.4-5.1); Sodium 136 mmol/L (137-145); Total Protein 6.5 g/dL (6.3-8.2); Triglycerides 178 mg/dL (35-150)
[2023-02-10 06:41] LABS: TSH w/ Reflex to FT4 1.56 uIU/mL (0.47-4.68)
[2023-02-10] MEDS: PANTOPRAZOLE DR 20 MG TABLET PO (07:01)
[2023-02-10] MEDS: LOSARTAN 25 MG TABLET PO (09:17)
[2023-02-10] MEDS: METOPROLOL IR 25 MG TABLET 12.5 MG PO ×2 (09:17→20:43)
[2023-02-10] MEDS: ASPIRIN EC 81 MG TABLET PO (09:17)
[2023-02-10] MEDS: MAGNESIUM CHLORIDE 64 MG TABLET 128 MG PO (09:51)
--- NOTE | 2023-02-10 15:10 | PM.PN.1 ---
Subjective Subjective Interval history: Patient denies further CP. Stress test delayed today due to nurse called out sick. Plan for stress tomorrow. Exam Vital Signs (past 8 hours): - 02/10/23 09:17 02/10/23 08:00 02/10/23 11:18 Temperature 97.4 F L Pulse Rate 58 L 62 Respiratory Rate 18 Blood Pressure 137/74 123/74 Pulse Oximetry 96 97 Oxygen Delivery Method Room Air Oxygen Flow Rate 0 02/10/23 12:00 Temperature Pulse Rate Respiratory Rate Blood Pressure Pulse Oximetry 97 Oxygen Delivery Method Room Air Oxygen Flow Rate Oxygen Delivery Method Room Air Oxygen Flow Rate 0 Narrative Exam Narrative: General:? Patient is well developed and well nourished, in no distress at this time. HEENT:? Normocephalic, atraumatic, extraocular muscles intact, oral pharynx is clear and mucous membranes are moist. Neck: supple and symmetric, trachea is midline, no cervical adenopathy. Negative for JVD Chest:? Normal AP diameter and contour without kyphoscoliosis, no tachypnea, equal chest rise bilaterally. Lungs:? CTA b/l no wheezing rhonchi or rales. Cardio:?RRR no m/r/g. Abdomen: S NT ND. No CVA tenderness. Musculoskeletal:? Muscle strength and tone are equal within normal limits, no deformity. Extremities: No edema or joint effusions. No cyanosis or clubbing. Skin:? Pale,? Warm to touch,dry and intact without rashes, ulcerations or petechiae.? Neuro:? Alert and orientated x3,? sensation to touch intact in all extremities, no gross deficits noted of cranial nerves. Psych:? Patient has a well-kept appearance, appropriate affect, mental status attitude thought context and judgment are appropriate for age. Objective Labs 02/10/23 05:07 02/10/23 05:07 Labs: Laboratory Results - last 24 hr 02/09/23 02/10/23 02/10/23 17:52 05:07 05:07 WBC 7.4 RBC 4.13 L Hgb 12.8 L Hct 36.9 L MCV 89.2 MCH 30.9 MCHC 34.6 RDW 13.8 Plt Count 144 L Neut % (Auto) 63.0 Lymph % (Auto) 26.0 [place] % (Auto) 8.9 Eos % (Auto) 1.7 L Baso % (Auto) 0.4 Neut # (Auto) 4700 Lymph # (Auto) 1900 [place] # (Auto) 700 Eos # (Auto) 100 Baso # (Auto) 0 Sodium 136 L Potassium 3.7 Chloride 102 Carbon Dioxide 29 BUN 15 Creatinine 0.95 Estimated GFR > 60 BUN/Creatinine Ratio 15.8 Glucose 113 H Calcium 8.6 Magnesium 1.7 Total Bilirubin 1.0 AST 28 ALT 27 Alkaline Phosphatase 52 Troponin I < 0.012 Total Protein 6.5 Albumin 3.4 L Globulin 3.1 Albumin/Globulin Ratio 1.1 Triglycerides 178 H Cholesterol 107 L LDL Cholesterol, Calc 38 HDL Cholesterol 33 L TSH 02/10/23 05:07 WBC RBC Hgb Hct MCV MCH MCHC RDW Plt Count Neut % (Auto) Lymph % (Auto) [place] % (Auto) Eos % (Auto) Baso % (Auto) Neut # (Auto) Lymph # (Auto) [place] # (Auto) Eos # (Auto) Baso # (Auto) Sodium Potassium Chloride Carbon Dioxide BUN Creatinine Estimated GFR BUN/Creatinine Ratio Glucose Calcium Magnesium Total Bilirubin AST ALT Alkaline Phosphatase Troponin I Total Protein Albumin Globulin Albumin/Globulin Ratio Triglycerides Cholesterol LDL Cholesterol, Calc HDL Cholesterol TSH 1.56 PFSH Medical History CAD (coronary artery disease) HLD (hyperlipidemia) HTN (hypertension) Prostate enlargement Surgical History H/O heart artery stent Social History household members: spouse Smoking Status: Former smoker alcohol intake: current Assessment & Plan Assessment & Plan narrative: 1. Chest pain, acute in setting of known CAD - further risk stratification recommended with stress testing. Lexiscan nuclear stress ordered. - TTE with EF 55-60%, no focal WMA's, mild-mod enlarged ascending aorta. No sig change from prior. - continue home asa and statin - trop neg x3 - possible gerd, start ppi 2. HTN, chronic - continue metoprolol, losartan 3. Obesity, BMI 31.3 - increases patient's risk for CAD and atherosclerosis, contributing to need for further risk stratification. Code: Full, surrogate is patient's spouse DVT: lovenox daily I have discussed with the hospital multidisciplinary care team including social work rounds. Dispo: Home pending stres test on 02/11. Quality VTE Deep Vein Thrombosis/Pulmonary Embolism Present on Admission: No
--- NOTE | 2023-02-10 15:13 | DI.NM.S_ITS ---
PROCEDURE: NM MARYSOL PERF SPECT R&S PHARM Rest and pharmacological stress myocardial perfusion SPECT with gated imaging and ejection fraction RADIOPHARMACEUTICAL: 11.7 mCi Tc-99m tetrafosmin IV at rest and 27.5 mCi Tc-99m tetrafosmin IV at peak effect of pharmacological stress. A [id number] was performed. INDICATIONS: high risk patient with classic CP relieved with nitro TECHNIQUE: Radiopharmaceutical was injected at peak stress test, and also at rest. SPECT images were obtained. SPECT myocardial perfusion images were displayed in short axis, horizontal long axis, and vertical long axis views. Gated images were reviewed using Nitro software. COMPARISON: None. CARDIAC STRESS: An exercise stress test was attempted. The patient exercised standard Henry protocol 4:05, maximum exercise heart rate 101 bpm. The test was switched due to inability to achieve target heart rate as a beta-jennifer was on board. A pharmacologic stress test was performed under the supervision of an attending staff, using an infusion of regadenoson 0.4 mg IV. Hemodynamic data: There is normal blood pressure and heart rate response to pharmacologic stress. Symptoms: The patient denied anginal chest pain. EKG: No diagnostic changes of ischemia; occasional PVCs. FINDINGS: Raw data: There is good myocardial uptake of radiotracer. No significant motion artifacts. Ubtf-qx-fsrjw ratio is 0.21 (normal is less than 0.38 for tetrafosmin tracer). Left ventricle function: Gated images demonstrate normal left ventricular wall thickening. No segmental wall motion abnormalities. No transient ischemic dilation; TID is 0.71 (normal less than 1.3). Left ventricle resting end diastolic volume is 133 mL. Left ventricle stress ejection fraction is 72%; normal range is above 45%. Myocardial perfusion: There is normal distribution of activity in the right and left ventricular myocardium. No fixed or reversible perfusion defects. IMPRESSION: Low risk study. No evidence of pharmacologic induced ischemia. Increased LVEDV with normal ejection fraction. Dictated by: Veronica Munoz D.O. on 02/11/2023 at 17:24 Approved by: Veronica Munoz D.O. on 02/11/2023 at 17:28
--- NOTE | 2023-02-10 15:40 | CM.DANOTE ---
Patient is a 77 yo male who was admitted on 02/09/23 for Chest Pain r/o. Pt has [facility] [employer] for insurance and his PCP is Dionne Tanner. EMR was reviewed. Per , pt with hx of cardiac stent placement 12 yr ago and now too high risk for chest pain and stress test not available at [facility] today or through the weekend and plan is likely transfer to [facility] for stress test and if stress test normal then pt would return and discharge from [facility]. Pt resides in [place] with his spouse and is indep with ADLs and likely no needs at d/c if stress test and Echo normal. Plan: SW to follow closely for transfer and treat and return and confirm safe d/c home with spouse and any further identified needs. YOGI Spears
[2023-02-10] MEDS: hydroCHLOROthiazide 25 MG TABLET PO (20:44)
[2023-02-10] MEDS: ATORVASTATIN 20 MG TABLET 40 MG PO (20:44)
[2023-02-10 21:42] LABS: x Labcorp Estim. Avg Glu (eAG) 111 mg/dL (.); x Labcorp Hemoglobin A1c 5.5 % (4.8-5.6)
[2023-02-11] VITALS (7 sets, daily range): BP systolic 112–133; BP diastolic 69–76; PULSE 58–69; RESP 18–19; TEMP 35.8–36.7; O2SAT 95–97
[2023-02-11] MEDS: ACETAMINOPHEN 325 MG TABLET 650 MG PO ×2 (00:12→12:25)
[2023-02-11 05:14] LABS: Add Manual Diff / Slide Review NO; Basophils Absolute Auto 0 /uL (0-100); Basophils Percent Auto 0.4 % (0-2); Eosinophils Absolute Auto 100 /uL (0-450); Eosinophils Percent Auto 1.6 % (2-4); Hematocrit 36.6 % (41-53); Hemoglobin 12.8 g/dL (13.5-17.5); Lymphocytes Absolute Auto 2200 /uL (1100-4500); Mean Corpuscular Hemoglobin 31.3 PG (26-34); Mean Corpuscular Volume 89.5 fL (80-100); Monocytes Absolute Auto 800 /uL (0-900); Monocytes Percent Auto 10.1 % (3-14); Neutrophils Absolute Auto 4500 /uL (1500-7000); Neutrophils Percent Auto 58.9 % (50-75); Platelet Count 151 X10^3/uL (150-400); Red Blood Cell Count 4.09 X10^6/uL (4.5-5.9); Red Cell Distribution Width 13.8 % (11.6-14.8); White Blood Cell Count 7.7 X10^3/uL (4.5-11.0)
[2023-02-11 05:26] LABS: Alanine Aminotransferase 25 IU/L (<50); Albumin 3.6 g/dL (3.5-5.0); Albumin Globulin Ratio 1.2 (1.0-2.8); Alkaline Phosphatase 53 U/L (38-126); Aspartate Aminotransferase 25 IU/L (17-59); BUN Creatinine Ratio 22.3 (6-22); Bilirubin Total 0.8 mg/dL (0.2-1.3); Blood Urea Nitrogen 21 mg/dL (9-20); Calcium 8.7 mg/dL (8.4-10.2); Carbon Dioxide 28 mmol/L (22-32); Chloride 103 mmol/L (98-107); Estimated Glomerular Filt Rate > 60 mL/min (>60); Globulin 2.9 g/dL (1.7-4.1); Glucose 115 mg/dL (80-110); HEMOLYSIS < 15 (0-50); Magnesium 1.8 mg/dL (1.6-2.3); Potassium 3.6 mmol/L (3.4-5.1); Sodium 137 mmol/L (137-145); Total Protein 6.5 g/dL (6.3-8.2)
[2023-02-11] MEDS: PANTOPRAZOLE DR 20 MG TABLET PO (06:45)
[2023-02-11] MEDS: POTASSIUM CHLORIDE 20 MEQ TAB 40 MEQ PO (08:25)
[2023-02-11] MEDS: METOPROLOL IR 25 MG TABLET 12.5 MG PO (08:27)
[2023-02-11] MEDS: ASPIRIN EC 81 MG TABLET PO (08:27)
--- NOTE | 2023-02-11 12:54 | CM.DANOTE ---
DCP Continued: Patient is a 77 yo M here following chest pains. PCP Dionne Norman [employer] and [employer] reviewed EMR. Per provider in rounds, patient likely to d/c today pending results of stress test. [employer] entered room and introduced self and role. Patient was sitting up in bed and appeared A/Ox4. Patient was accompanied by spouse Kirsten ([phone]) at bedside. Patient reports he is hopeful to head home. Patient will transport with spouse in POV. Patient reports he likely has no needs from CM team. Plan: pending results of stress test. Home when medically stable transport with spouse in POV. CM team will continue to follow as needed, YOGI Young Discharge Planning/Care Management CM Discharge Assessment Start: 02/11/23 12:52 Freq: Status: Active Protocol: Document 02/11/23 12:52 (Rec: 02/11/23 12:53 [email or web address]) Discharge Planning Assessment Assigned [employer] YOGI Patrick DPOA/Assigned Designee Name Arti (spouse) Contact Information [phone] Advance Directives? Yes Advance Directives on File No History Provided By Patient,Medical Record Household Members spouse Type of transporation used prior to Drives own vehicle admit Independent with ADL's Yes Is patient alert and oriented? Yes Discharge Plan Home Transportation Arrangement spouse in POV Whiteboard Updated in Patient Room with Yes name and ext. # of [employer] Review Status In Process Next Review Type Continued Stay Review
--- NOTE | 2023-02-11 16:26 | PC.NURSE ---
Day shift: Discharge instructions gone over with patient and patient's spouse. All questions answered. Pt has no chest pain. PIV and tele d/c'ed. Pt and his spouse escorted out - pt via wheelchair - to exit. All belongings with patient.
--- NOTE | 2023-02-11 17:32 | PM.DS.1 ---
History of Present Illness History of Present Illness Date Patient Seen: 02/09/23 Time Patient Seen: 16:53 Chief complaint: chest pressure all night, heart burn Narrative: This is a 77 year old male with PMH of HTN, CAD w/ stent placement 12 years ago who presents with chest pressure that awoke him from sleep. Patient states he awoke with a moderate intensity pressure in the morning that would not go away. States it felt similar but less intense to what his previous MT presented as 12 years ago. He took some tums overnight but did not help. He did get some nitro with mild improvement, and now the pressure is intermittently returning but is not currently present. He denies recent fever, chills, cough, LE edema or weight gain. He denied radiation of the pressure, and had no diaphroesis, nausea, vomiting or abdominal pain. In the emergency room, patient was given 1 dose SL nitro with mild improvement as noted above. Vital signs were unremarkable. Laboratory evaluation was also unremarkable including CBC, CMP, and troponin level x2. EKG showed sinus bradycardia. CXR was unremarkable. ER discussed with cardiology, recommended echo and stress testing for further risk stratification. Patient's chief of field operations as outpatient is Dr. Gold. Discharge Providers Provider Date of admission: 02/09/23 14:15 Discharge Date: 02/11/23 Primary care physician: Dionne Tanner PA-C Discharge provider: Dl Bertrand DO Summary Hospital Course Discharge Diagnosis: 1. Chest pain, acute in setting of known CAD ?- further risk stratification recommended with stress testing. Lexiscan nuclear stress ordered. ?- TTE with EF 55-60%, no focal WMA's, mild-mod enlarged ascending aorta. No sig change from prior. ?- continue home asa and statin ?- trop neg x3 - nuclear exercise stress test low risk with no evidence of perfusion defects or infarcts - CP likely related to untreated gerd, sent home with PPI PRN 2. HTN, chronic ?- continue metoprolol, losartan 3. Obesity, BMI 31.3 ?- increases patient's risk for CAD and atherosclerosis, contributing to need for further risk stratification. Hospital Course: Admitted for chest pressure which awoke him from sleep and lasting until he got to the ED. Relieved with nitro. All cardiac testing including EKG, echo, troponins and nuclear stress test were reassuring. Patient noted heartburn issues lately so likely GERD-related CP and discharged home with PPI PRN. Time Spent with Patient Time spent: Greater than 30 minutes Exam Vital Signs (past 8 hours): - 02/11/23 12:44 Temperature 96.5 F L Pulse Rate 69 Respiratory Rate 19 Blood Pressure 133/76 Pulse Oximetry 96 Oxygen Flow Rate 0 Oxygen Delivery Method Room Air Oxygen Flow Rate 0 Narrative Exam Narrative: General:? Patient is well developed and well nourished, in no distress at this time. HEENT:? Normocephalic, atraumatic, extraocular muscles intact, oral pharynx is clear and mucous membranes are moist. Neck: supple and symmetric, trachea is midline, no cervical adenopathy. Negative for JVD Chest:? Normal AP diameter and contour without kyphoscoliosis, no tachypnea, equal chest rise bilaterally. Lungs:? CTA b/l no wheezing rhonchi or rales. Cardio:?RRR no m/r/g. Abdomen: S NT ND. No CVA tenderness. Musculoskeletal:? Muscle strength and tone are equal within normal limits, no deformity. Extremities: No edema or joint effusions. No cyanosis or clubbing. Skin:? Pale,? Warm to touch,dry and intact without rashes, ulcerations or petechiae.? Neuro:? Alert and orientated x3,? sensation to touch intact in all extremities, no gross deficits noted of cranial nerves. Psych:? Patient has a well-kept appearance, appropriate affect, mental status attitude thought context and judgment are appropriate for age. Objective Labs 02/11/23 04:40 02/11/23 04:40 Labs: Laboratory Results - last 24 hr 02/10/23 02/11/23 02/11/23 05:07 04:40 04:40 WBC 7.7 RBC 4.09 L Hgb 12.8 L Hct 36.6 L MCV 89.5 MCH 31.3 MCHC 35.0 RDW 13.8 Plt Count 151 Neut % (Auto) 58.9 Lymph % (Auto) 29.0 [place] % (Auto) 10.1 Eos % (Auto) 1.6 L Baso % (Auto) 0.4 Neut # (Auto) 4500 Lymph # (Auto) 2200 [place] # (Auto) 800 Eos # (Auto) 100 Baso # (Auto) 0 Sodium 137 Potassium 3.6 Chloride 103 Carbon Dioxide 28 BUN 21 H Creatinine 0.94 Estimated GFR > 60 BUN/Creatinine Ratio 22.3 H Glucose 115 H Hgb A1c (Ref Lab) 5.5 Estim Average Glucose 111 Calcium 8.7 Magnesium 1.8 Total Bilirubin 0.8 AST 25 ALT 25 Alkaline Phosphatase 53 Total Protein 6.5 Albumin 3.6 Globulin 2.9 Albumin/Globulin Ratio 1.2 PFSH Medical History CAD (coronary artery disease) HLD (hyperlipidemia) HTN (hypertension) Prostate enlargement Surgical History H/O heart artery stent Social History household members: spouse Smoking Status: Former smoker alcohol intake: current Discharge Plan Discharge Plan Patient Disposition: Home Provider Discharge Comment: You were admitted for chest pain and had a full cardiac workup including EKG, echo, troponins and stress test which were all reassuring. It is most likely the pain you felt was due to indigestion or heartburn. So I've sent a script for protonix to take if you get these pains again. Discharge orders & Medications Prescriptions: New pantoprazole 20 mg Tablet,Delayed Release (Dr/Ec) 20 mg PO PRN PRN (Reason: heartburn) 30 Days Qty: 30 0RF Continued hydrocodone-acetaminophen 5-325 mg tablet 1 tab PO Q6H PRN (Reason: pain) Qty: 10 0RF ondansetron 4 mg tablet,disintegrating 4 mg PO Q8H PRN (Reason: nausea and vomiting) Qty: 10 0RF atorvastatin 40 mg tablet 40 mg PO BEDTIME hydrochlorothiazide 25 mg tablet 25 mg PO BEDTIME metoprolol tartrate 25 mg tablet 12.5 mg PO BID losartan 25 mg tablet 25 mg PO DAILY aspirin 81 mg Tablet,Delayed Release (Dr/Ec) 81 mg PO DAILY Follow up/Referrals: Dionne Tanner PA-C [Primary Care Provider] - Visit Report/Discharge Packet Instructions: DI for Chest Pain Stand Alone Forms: Patient Portal/API, Stroke Signs & Symptoms Discharge Data Primary Care Provider: Dionne Tanner Attending Provider: Jorge Gould Admgill Date/Time: 02/09/23 14:15 Quality VTE Deep Vein Thrombosis/Pulmonary Embolism Present on Admission: No
== END 2023-02-11 17:30 | disposition home or self-care (01) ==
LOC: ED 09:09 → AC 14:17
PROVIDERS: Admitting Provider Internal Medicine; Emergency Provider Emergency Medicine; PCP Physician Assistant; Referring Provider Emergency Medicine; Visit Provider Internal Medicine
DX: R07.9 Chest pain, unspecified (principal); I10 Essential (primary) hypertension; E66.9 Obesity, unspecified; Z68.31 Body mass index [BMI] 31.0-31.9, adult; Z87.891 Personal history of nicotine dependence; Z79.82 Long term (current) use of aspirin
CPT/HCPCS: 36415; 71045; 78452; 80053; 80061; 82550; 83036; 83690; 83735; 83880; 84443; 84484; 85025; 85610; 93005; 93010; 93017; 96360; 96361; 99284; G0378; A9502; C8929; J2785; Q9957

== ENCOUNTER 2023-07-06 05:59 | Emergency (ER) | payer MEDICARE, OTHER, SELFPAY ==
[2023-02-09 15:14] VITALS: BMI 31.3
--- NOTE | 2023-07-06 06:06 | ED.GENADULT ---
HPI - General Adult General Chief complaint: Upper Respiratory Symptoms Stated complaint: cough x7 days Time Seen by Provider: 07/06/23 06:06 History of Present Illness HPI narrative: 77-year-old gentleman with a history of cardiac disease prior stent, BPH no longer requiring medications, hypertension hyperlipidemia presents with cough has been present for a week. Initially started with a sore throat minor nasal congestion that seems to have improved but the cough has persisted to the point he is no longer getting any sleep and complaining of severe fatigue. He states that he is not had a fever he is describes more postnasal drainage when he lays flat in the cough getting worse, no lower extremity edema no chest tightness, chest pain, nausea, vomiting, diarrhea, constipation. He is had no headaches or myalgias. Related Data Home Medications Medication Instructions Recorded Confirmed aspirin 81 mg tablet,delayed 81 mg PO DAILY 11/20/18 02/09/23 release atorvastatin 40 mg tablet 40 mg PO BEDTIME 11/20/18 02/09/23 hydrochlorothiazide 25 mg tablet 25 mg PO BEDTIME 11/20/18 02/09/23 losartan 25 mg tablet 25 mg PO DAILY 11/20/18 02/09/23 metoprolol tartrate 25 mg tablet 12.5 mg PO BID 11/20/18 02/09/23 Previous Rx's Medication Instructions Recorded hydrocodone 5 mg-acetaminophen 325 1 tab PO Q6H PRN pain #10 tabs 10/21/22 mg tablet ondansetron 4 mg disintegrating 4 mg PO Q8H PRN nausea and 10/21/22 tablet vomiting #10 tabs dextromethorphan polistirex 30 10 ml PO Q12H PRN cough #89 mL 07/06/23 mg/5 mL oral susp ext.release 12hr (12-Hour Cough Relief) hydrocodone 5 mg-acetaminophen 325 0.5 tab PO Q6H PRN cough #14 tabs 07/06/23 mg tablet Allergies Allergy/AdvReac Type Severity Reaction Status Date / Time lisinopril AdvReac Mild COUGH Verified 11/20/18 07:34 Review of Systems Review of Systems Narrative: Pertinent positive and negative findings as per HPI Patient History Medical History Prostate enlargement HLD (hyperlipidemia) HTN (hypertension) CAD (coronary artery disease) Surgical History H/O heart artery stent Social History household members: spouse Smoking Status: Former smoker alcohol intake: current Smoking Status: Former smoker tobacco type: cigarettes alcohol intake frequency: 0-2 drinks per day Substance Use Type: does not use Exam Initial Vital Signs Initial Vital Signs: Vital Signs Temperature 97.5 F L 07/06/23 06:07 Pulse Rate 62 07/06/23 06:07 Respiratory Rate 22 07/06/23 06:07 Blood Pressure 158/84 H 07/06/23 06:07 Pulse Oximetry 95 07/06/23 06:07 Oxygen Delivery Method Room Air 07/06/23 06:07 General: Healthy appearing, in no acute distress. Able to give a complete and coherent history. Well-nourished well-developed HEENT: Moist mucous membranes, normal sclera with reactive pupils, he has a geographic tongue, minor erythema in the posterior pharynx no cervical adenopathy Neck: No JVD, supple Respiratory: Lungs are clear to auscultation, no wheezing no rales no rhonchi. Full and symmetrical air movement. Dry nonproductive cough is appreciated. Cardiac: Regular rate and rhythm no murmurs no bruits Abdomen: Soft, nontender, good bowel tones, no flank pain Skin: Warm and dry, no rashes Neurologic: Grossly neurologically intact with no obvious asymmetries or abnormalities Extremities: No trauma, well perfused, no lower extremity edema Psych: Cooperative, appropriate insight and affect Course Vital Signs Vital signs: Vital Signs - 8 hr 07/06/23 06:07 Temperature 97.5 F L Pulse Rate 62 Respiratory Rate 22 Blood Pressure 158/84 H Pulse Oximetry 95 Oxygen Delivery Method Room Air Medical Decision Making MDM Narrative Medical decision making narrative: CC: Cough for a week Complicating co-morbidities: Prior coronary disease, hypertension no pulmonary disease of which he is aware Data collected from: patient, Medical records reviewed: Hospitalization records from February of this year with admission for chest pain Echocardiogram done in February with ejection fraction 55-60% and no focal wall motion abnormalities Differential considered: Viral syndrome, reactive airway component, congestive heart failure, pneumonia Exam documented above, pertinent findings include: Exam is entirely benign other than some minor dry cough. No signs of congestive heart failure, no wheezing, no respiratory distress Treatments: DuoNeb is administered to see if the moisture might help reduce some of the immediate superficial inflammation and dryness in his bronchial tree. And actually was relatively effective and helping with a dry cough. He is also given Tessalon Juan Re-evaluations: Cough is somewhat better Discussion: 77-year-old gentleman who presents with what sounds like a mild viral syndrome with persistent cough that is causing sleep deprivation. He has been using [id number] DayQuil and NyQuil and using cough pills. There is no evidence of pneumonia or sepsis, no impending respiratory distress, no suggestion of pneumothorax or congestive heart failure. With the initial sore throat, the geographic tongue and the overall minor symptoms I suspect this is entirely viral. Tessalon is not covered by his insurance so will have him use a small dose of narcotic in the form of half a Vicodin in combination with Robitussin liquid cough syrup. I do not think that steroids are inhalers are going to be of much benefit. I think that if we can get a couple hours of sleep this will go a long way to improving his overall symptomatic relief. At this point he is safe for discharge home Discharge Plan Departure Patient Disposition: Home Clinical Impression: Upper respiratory infection Qualifiers: URI type: unspecified viral URI Qualified Code(s): J06.9 - Acute upper respiratory infection, unspecified Cough Qualifiers: Cough type: acute Qualified Code(s): R05.1 - Acute cough Instructions: Cough, DI for Viral Upper Respiratory Infection -- Adult Activity Restrictions/Additional Instructions: Thank you for coming in tonight, I am sorry that you are continuing to suffer with this cough I am not seeing any evidence of a bacterial pneumonia, congestive heart failure or anything else that would require further workup or hospital admission In the emergency department you are given a nebulized breathing treatment. You may find that some warm moist air such as steam or taking a shower may be helpful in suppressing the cough slightly. I have given you a prescription for 12 hour cough syrup into that you can add half a tablet of Vicodin/hydrocodone. The narcotic in the hydrocodone can be very effective in suppressing the cough. Prescriptions were electronically transmitted to [facility] for you. This should resolve within the next couple of days. If it does not, you are having increasing tightness in your chest, feeling more short of breath or developing a fever or significant productive cough (not just coughing out some of the minor nasal discharge) than it would be appropriate to return to the ER. Prescriptions: New hydrocodone-acetaminophen 5-325 mg tablet 0.5 tab PO Q6H PRN (Reason: cough) Qty: 14 0RF dextromethorphan polistirex [12-Hour Cough Relief] 30 mg/5 mL suspension,extended rel 12 hr 10 ml PO Q12H PRN (Reason: cough) Qty: 89 0RF No Action hydrocodone-acetaminophen 5-325 mg tablet 1 tab PO Q6H PRN (Reason: pain) Qty: 10 0RF ondansetron 4 mg tablet,disintegrating 4 mg PO Q8H PRN (Reason: nausea and vomiting) Qty: 10 0RF atorvastatin 40 mg tablet 40 mg PO BEDTIME hydrochlorothiazide 25 mg tablet 25 mg PO BEDTIME metoprolol tartrate 25 mg tablet 12.5 mg PO BID losartan 25 mg tablet 25 mg PO DAILY aspirin 81 mg Tablet,Delayed Release (Dr/Ec) 81 mg PO DAILY Referrals: Dionne Tanner PA-C [Primary Care Provider] - Stand Alone Forms: Patient Portal/API
[2023-07-06 06:07] VITALS: BP 158/84; PULSE 62; RESP 22; TEMP 36.4; O2SAT 95; BMI 30.2
[2023-07-06 06:14] VITALS: PULSE 65; O2SAT 97
[2023-07-06] MEDS: ALBUTEROL/IPRATROPIUM 3 ML AMPUL INH (06:24)
[2023-07-06] MEDS: BENZONATATE 100 MG CAPSULE PO (06:24)
[2023-07-06 06:25] VITALS: O2SAT 96
[2023-07-06 06:30] VITALS: BP 137/73; PULSE 57; PULSE 58; O2SAT 97
== END 2023-07-06 06:55 | disposition home or self-care (01) ==
PROVIDERS: Emergency Provider Emergency Medicine; PCP Physician Assistant
DX: J06.9 Acute upper respiratory infection, unspecified (principal); Z87.891 Personal history of nicotine dependence
CPT/HCPCS: 94640; 99283

== ENCOUNTER → 2024-03-15 09:30 | Outpatient (CLI) | payer MEDICARE, SELFPAY ==
[2023-02-09 15:14] VITALS: BMI 31.3
[2024-03-15 09:49] LABS: Hematocrit 39.7 % (41-53); Hemoglobin 13.7 g/dL (13.5-17.5); Mean Corpuscular HGB Conc 34.5 % (30-36); Mean Corpuscular Hemoglobin 30.7 PG (26-34); Mean Corpuscular Volume 89.1 fL (80-100); Platelet Count 195 X10^3/uL (150-400); Red Blood Cell Count 4.46 X10^6/uL (4.5-5.9); Red Cell Distribution Width 14.2 % (11.6-14.8); White Blood Cell Count 7.8 X10^3/uL (4.5-11.0)
[2024-03-15 10:07] LABS: Alanine Aminotransferase 23 IU/L (<50); Albumin 4.1 g/dL (3.5-5.0); Albumin Globulin Ratio 1.5 (1.0-2.8); Alkaline Phosphatase 60 U/L (38-126); Aspartate Aminotransferase 30 IU/L (17-59); BUN Creatinine Ratio 10.5 (6-22); Bilirubin Total 0.7 mg/dL (0.2-1.3); Blood Urea Nitrogen 11 mg/dL (9-20); Calcium 9.1 mg/dL (8.4-10.2); Carbon Dioxide 28 mmol/L (22-32); Chloride 105 mmol/L (98-107); Cholesterol 107 mg/dL (140-199); Estimated Glomerular Filt Rate > 60 mL/min (>60); Globulin 2.8 g/dL (1.7-4.1); Glucose 119 mg/dL (80-110); HDL Cholesterol 48 mg/dL (40-60); HEMOLYSIS < 15 (0-50); LDL Cholesterol Calculated 33 mg/dL (<100); Potassium 4.3 mmol/L (3.4-5.1); Sodium 140 mmol/L (137-145); Total Protein 6.9 g/dL (6.3-8.2); Triglycerides 130 mg/dL (35-150)
== END ==
PROVIDERS: PCP Physician Assistant; Referring Provider Nurse Practitioner Acute Care; Visit Provider Nurse Practitioner Acute Care
DX: I10 Essential (primary) hypertension (principal); I25.10 Atherosclerotic heart disease of native coronary artery without angina pectoris; E78.5 Hyperlipidemia, unspecified
CPT/HCPCS: 36415; 80053; 80061; 85027

== ENCOUNTER 2024-06-20 11:19 | Emergency (ER) | payer MEDICARE, SELFPAY ==
[2023-02-09 15:14] VITALS: BMI 31.3
[2024-06-20] VITALS (17 sets, daily range): BP systolic 117–158; BP diastolic 70–85; PULSE 48–80; RESP 14–29; TEMP 36.4; O2SAT 95–99; BMI 33.0
--- NOTE | 2024-06-20 11:23 | DI.RAD.S_ITS ---
PROCEDURE: XR CHEST 1V INDICATIONS: chest pain TECHNIQUE: One view of the chest was acquired. COMPARISON: [facility], CR, XR CHEST 1V, 02/09/2023, 9:15. [facility], CR, XR CHEST 2V, 11/08/2018, 16:27. FINDINGS: Surgical changes and devices: None. Lungs and pleura: Low lung volumes. No dense consolidation or pleural effusions. Mediastinum: Borderline enlarged heart size. Right hemidiaphragm eventration. These are unchanged. Bones and chest wall: Degenerative findings IMPRESSION: Limited single view radiograph with low lung volumes. No acute abnormality. Dictated by: Tyree Bryson M.D. on 06/20/2024 at 12:10 Approved by: Tyree Bryson M.D. on 06/20/2024 at 12:11
--- NOTE | 2024-06-20 11:26 | ED_ITS ---
HPI - Dizziness General Chief Complaint: Syncope Stated Complaint: near syncope Time Seen by Provider: 06/20/24 11:26 History of Present Illness HPI Narrative: Blood sugar by EMS 163. Patient here for near syncope diaphoresis dizziness. He was at his computer at home. Denied any chest pain. Rates headache 6 -02/14. It has resolved. Patient has history of coronary stent over 10 years ago. Follow[address] by Dr. Gold, cardiology with [facility]. No recent illness. Denies any chest pain or abdominal pain or back pain. Related Data Home Medications Medication Instructions Recorded Confirmed aspirin 81 mg tablet,delayed 81 mg PO DAILY 11/20/18 02/09/23 release atorvastatin 40 mg tablet 40 mg PO BEDTIME 11/20/18 02/09/23 hydrochlorothiazide 25 mg tablet 25 mg PO BEDTIME 11/20/18 02/09/23 losartan 25 mg tablet 25 mg PO DAILY 11/20/18 02/09/23 metoprolol tartrate 25 mg tablet 12.5 mg PO BID 11/20/18 02/09/23 Previous Rx's Medication Instructions Recorded hydrocodone 5 mg-acetaminophen 325 1 tab PO Q6H PRN pain #10 tabs 10/21/22 mg tablet ondansetron 4 mg disintegrating 4 mg PO Q8H PRN nausea and 10/21/22 tablet vomiting #10 tabs dextromethorphan polistirex 30 10 ml PO Q12H PRN cough #89 mL 07/06/23 mg/5 mL oral susp ext.release 12hr (12-Hour Cough Relief) hydrocodone 5 mg-acetaminophen 325 0.5 tab PO Q6H PRN cough #14 tabs 07/06/23 mg tablet Allergies Allergy/AdvReac Type Severity Reaction Status Date / Time lisinopril AdvReac Mild COUGH Verified 11/20/18 07:34 Review of Systems Review of Systems Narrative: GENERAL: Negative chills, fatigue, malaise, fever, positive sweats. HEENT: Negative sinus pain, ear pain, sore throat RESPIRATORY: Negative dyspnea, cough CARDIOVASCULAR: Negative chest pain, palpitations GASTROINTESTINAL: Negative nausea, vomiting, abdominal pain : Negative dysuria, frequency, hematuria MUSCULOSKELETAL: Negative muscle or bony pain SKIN: Negative rash, skin lesions NEUROLOGIC: Negative weakness, numbness, positive dizzy ROS Unobtainable: All systems reviewed & are unremarkable except as noted in HPI and below Patient History Medical History Prostate enlargement HLD (hyperlipidemia) HTN (hypertension) CAD (coronary artery disease) Surgical History H/O heart artery stent Social History household members: spouse Smoking Status: Former smoker alcohol intake: current Smoking Status: Former smoker tobacco type: cigarettes alcohol intake frequency: 0-2 drinks per day Substance Use Type: does not use Exam Narrative Exam Narrative: GENERAL: in no distress, not toxic not dyspneic HEAD: Normocephalic. EYES: Pupils equal round ENT: Mucous membranes moist. NECK: Trachea midline. CARDIOVASCULAR: Regular rate and rhythm RESPIRATORY: Clear to auscultation. Breath sounds equal bilaterally. No wheezes, rales, or rhonchi. GASTROINTESTINAL: Abdomen soft, non-tender EXTREMITIES: No gross deformities. BACK: No flank tenderness. NEURO: AOx4. Fast exam is negative. Clear speech no facial droop negative pronator drift. Light touch intact bilateral face hands and legs. Lift each leg independently without difficulty. SKIN: Warm and dry PSYCH: Not anxious, is cooperative Initial Vital Signs Initial Vital Signs: Vital Signs Pulse Rate 48 L 06/20/24 11:26 Respiratory Rate 17 06/20/24 11:26 Pulse Oximetry 97 06/20/24 11:26 Course Orders Ordered: Discontinued Medications Sodium Chloride (Normal Saline 0.9%) 500 mls @ 1,000 mls/hr IV BOLUS ONE Stop: 06/20/24 13:04 Last Infusion: 06/20/24 15:15 Dose: Infused Documented By: Admin: 06/20/24 12:43 Dose: 1,000 mls/hr Documented By: CTS Vital Signs Vital signs: Vital Signs - 8 hr 06/20/24 11:26 06/20/24 11:30 06/20/24 11:31 Temperature 97.5 F L Pulse Rate 48 L 49 L 49 L Respiratory Rate 17 14 20 Blood Pressure 117/79 Pulse Oximetry 97 95 97 Oxygen Delivery Method Room Air 06/20/24 11:31 06/20/24 11:31 06/20/24 12:00 Temperature Pulse Rate 55 L Respiratory Rate 29 H Blood Pressure 117/70 118/77 Pulse Oximetry 96 Oxygen Delivery Method 06/20/24 12:00 06/20/24 12:11 06/20/24 12:11 Temperature Pulse Rate 54 L 61 Respiratory Rate 29 H 24 Blood Pressure 136/76 Pulse Oximetry 98 97 Oxygen Delivery Method 06/20/24 12:30 06/20/24 12:30 06/20/24 13:00 Temperature Pulse Rate 55 L Respiratory Rate 17 Blood Pressure 119/70 152/85 H Pulse Oximetry 99 Oxygen Delivery Method 06/20/24 13:00 06/20/24 13:30 06/20/24 13:30 Temperature Pulse Rate 62 63 Respiratory Rate 18 29 H Blood Pressure 158/84 H Pulse Oximetry 98 98 Oxygen Delivery Method 06/20/24 13:35 06/20/24 13:40 06/20/24 13:45 Temperature Pulse Rate 66 63 63 Respiratory Rate 23 20 22 Blood Pressure Pulse Oximetry 99 96 98 Oxygen Delivery Method 06/20/24 13:50 06/20/24 13:55 06/20/24 14:00 Temperature Pulse Rate 62 62 62 Respiratory Rate 21 22 25 H Blood Pressure Pulse Oximetry 98 98 97 Oxygen Delivery Method 06/20/24 14:00 06/20/24 14:05 Temperature Pulse Rate 61 Respiratory Rate 23 Blood Pressure 143/85 H Pulse Oximetry 97 Oxygen Delivery Method MDM - Dizziness Lab Data 06/20/24 11:35 06/20/24 11:35 Labs: Lab Results 06/20/24 06/20/24 06/20/24 Range/Units 11:35 12:45 13:55 WBC 7.0 (4.5-11.0) X10^3/uL RBC 4.52 (4.5-5.9) X10^6/uL Hgb 14.0 (13.5-17.5) g/dL Hct 40.6 L (41-53) % MCV 89.8 (80-100) fL MCH 31.1 (26-34) PG MCHC 34.6 (30-36) % RDW 14.0 (11.6-14.8) % Plt Count 179 (150-400) X10^3/uL Neut % (Auto) 63.2 (50-75) % Lymph % (Auto) 25.9 (25-40) % Benton % (Auto) 8.4 (3-14) % Eos % (Auto) 1.3 L (2-4) % Baso % (Auto) 1.2 (0-2) % Neut # (Auto) 4400 (4613-7770) /uL Lymph # (Auto) 1800 (3918-0118) /uL Benton # (Auto) 600 (0-900) /uL Eos # (Auto) 100 (0-450) /uL Baso # (Auto) 100 (0-100) /uL PT 12.2 (9.4-12.5) SECONDS INR 1.1 (0.9-1.3) APTT 30 (25.1-36.5) SECONDS Sodium 137 (137-145) mmol/L Potassium 3.6 (3.4-5.1) mmol/L Chloride 102 (98-107) mmol/L Carbon Dioxide 28 (22-32) mmol/L BUN 15 (9-20) mg/dL Creatinine 1.11 (0.66-1.25) mg/dL Estimated GFR > 60 (>60) mL/min BUN/Creatinine Ratio 13.5 (6-22) Glucose 130 H (80-110) mg/dL Calcium 9.3 (8.4-10.2) mg/dL Magnesium 1.9 (1.6-2.3) mg/dL Total Bilirubin 0.9 (0.2-1.3) mg/dL AST 31 (17-59) IU/L ALT 23 (<50) IU/L Alkaline Phosphatase 62 (38-126) U/L Total Creatine Kinase 31 L 32 L (55-170) U/L Troponin I < 0.012 < 0.012 (0.01-0.034) ng/mL NT-Pro-B Natriuret Pep 51 (<450) pg/mL Total Protein 7.3 (6.3-8.2) g/dL Albumin 4.1 (3.5-5.0) g/dL Globulin 3.2 (1.7-4.1) g/dL Albumin/Globulin Ratio 1.3 (1.0-2.8) Lipase 133 (23-300) U/L Chlamy pneumoniae PCR Not detected (Not Detect) Adenovirus (PCR) Not detected (Not Detect) B. pertussis DNA (PCR) Not detected (Not Detect) B.parapertussis DNA PCR Not detected (Not Detecte) Coronavirus OC43 (PCR) Not detected (Not Detect) Coronavirus HKU1 (PCR) Not detected (Not Detect) Coronavirus 229E (PCR) Not detected (Not Detect) SARS-CoV-2 (PCR) Not detected (Not Detecte) Coronavirus NL63 (PCR) Not detected (Not Detect) Human Metapneumovir PCR Not detected (Not Detect) Influenza Type A (PCR) Not detected (Not Detect) Influenza Type B (PCR) Not detected (Not Detect) M. pneumoniae (PCR) Not detected (Not Detect) Parainfluenza 1 (PCR) Not detected (Not Detect) Parainfluenza 2 (PCR) Not detected (Not Detect) Parainfluenza 3 (PCR) Not detected (Not Detect) Parainfluenza 4 (PCR) Not detected (Not Detect) RSV (PCR) Not detected (Not Detect) Entero/Rhino (PCR) Not detected (Not Detect) Point of Care Testing Glucose POC 163 Imaging Data Chest x-ray: Radiologist's Impression: [address] [address] XRay Report Signed Patient: Chad Martinez MR#: [id number] : 1945 Acct:[id number] Age/Sex: 78 / M Date of Service: 06/20/24 Loc: ED Accession Number: [id number] Procedure: XR chest 1V Ordering Provider: Emanuel Phillips MD PROCEDURE: XR CHEST 1V INDICATIONS: chest pain TECHNIQUE: One view of the chest was acquired. COMPARISON: [facility], , XR CHEST 1V, 02/09/2023, 9:15. [facility], , XR CHEST 2V, 11/08/2018, 16:27. FINDINGS: Surgical changes and devices: None. Lungs and pleura: Low lung volumes. No dense consolidation or pleural effusions. Mediastinum: Borderline enlarged heart size. Right hemidiaphragm eventration. These are unchanged. Bones and chest wall: Degenerative findings IMPRESSION: Limited single view radiograph with low lung volumes. No acute abnormality. Dictated by: Tyree Bryson M.D. on 06/20/2024 at 12:10 Approved by: Tyree Bryson M.D. on 06/20/2024 at 12:11 CT scan - head: Radiologist's Impression: [address] [address] [address] Scan Report Signed Patient: Chad Martinez MR#: [id number] : 1945 Acct:[id number] Age/Sex: 78 / M Date of Service: 06/20/24 Loc: ED Accession Number: [id number] Procedure: CT head/brain wo con Ordering Provider: Emanuel Phillips MD PROCEDURE: CT HEAD/BRAIN WO CON INDICATIONS: Headache TECHNIQUE: Noncontrast 4.5 mm thick angled axial sections acquired from the foramen magnum to the vertex, with coronal and sagittal reformats. For radiation dose reduction, the following was used: automated exposure control, adjustment of mA and/or kV according to patient size. COMPARISON: [facility], CT, CT ANGIO HEAD AND NECK, 06/20/2024, 11:33. [facility], CT, HEAD WITHOUT CONTRAST, 02/22/2017, 8:17. FINDINGS: Image quality: Diagnostic. CSF spaces: Basal cisterns are patent. No extra-axial fluid collections. The ventricles are symmetric in size and shape. Brain: No intracranial bleeds or masses. There is cerebral volume loss for age, with resultant ventricular and sulcal prominence. There are periventricular and deep white matter chronic small vessel ischemic changes. There is intracranial internal carotid artery atherosclerosis. Skull and face: Calvarium and visualized facial bones appear intact, without suspicious lesions. Sinuses: Visualized sinuses and mastoids are clear. IMPRESSION: No acute intracranial pathology. No acute intracranial hemorrhage is seen. To the limits of this noncontrast study, no findings of intracranial masses or mass effect can be seen. Dictated by: Александр Martin M.D. on 06/20/2024 at 11:23 Approved by: Александр Martin M.D. on 06/20/2024 at 11:24 CTA - brain/neck: Radiologist's Impression: [address] [address] [address] Scan Report Signed Patient: Chad Maritnez MR#: [id number] : 1945 Acct:[id number] Age/Sex: 78 / M Date of Service: 06/20/24 Loc: ED Accession Number: [id number] Procedure: CT angio head and neck Ordering Provider: Emanuel Phillips MD PROCEDURE: CT ANGIO HEAD AND NECK INDICATIONS: Headache/altered mental status TECHNIQUE: After the administration of intravenous contrast, 1 mm thick sections acquired from the aortic arch through the [place] of [place]. 3-dimensional ztcynhr-qcbdawhkw-nmsoiattun (MIP) and/or volume rendering reformats were acquired of the central intracranial vasculature and neck separately. For radiation dose reduction, the following was used: automated exposure control, adjustment of mA and/or kV according to patient size. COMPARISON: [facility], CT, CT HEAD/BRAIN WO CON, 06/20/2024, 11:33. (Additional prior imaging is not available for review from the archive at the time of this dictation.) FINDINGS: Image quality: There is streak artifact seen through the level of the shoulders. Limited by bolus timing, with venous contamination. BRAIN: CSF spaces: Ventricles are normal in size and shape. Basal cisterns are patent. No extra-axial fluid collections. Brain: No significant abnormality of the brain can be seen. Skull and face: Calvarium and facial bones appear intact, without suspicious lesions. Orbits appear normal. Sinuses: Sinuses and mastoids are clear. HEAD CT ANGIOGRAPHY: Anterior circulation: Intracranial internal carotid arteries are normal in size and flow. There is a diminutive left A1 segment, with a corresponding robust right A1 segment. This is considered to be a normal developmental variant of the alga[place]q of [place], of typically no clinical consequence. The flow within the paired anterior cerebral arteries is otherwise normal and symmetric. The flow within the middle cerebral arteries is normal and symmetric. The anterior communicating artery is seen. No aneurysms are seen. Posterior circulation: Visualized portions of the vertebral arteries demonstrate normal caliber, and join to form a normal appearing basilar artery. There is a prominent left posterior communicating artery seen, with an accompanying diminutive left P1 segment. This is attributed to a type origin of the right posterior cerebral artery, which is considered to be a normal developmental variant of typically no clinical consequence. The flow within the posterior cerebral arteries is normal and symmetric. No aneurysms are seen. NECK CT ANGIOGRAPHY: Carotid system: The great vessels demonstrate a conventional anatomy as they arise from the aortic arch. The origins of the common carotid arteries appear patent. The common carotid arteries demonstrate normal caliber and courses. The bifurcation regions are both widely patent. The internal carotid arteries demonstrate normal calibers and courses. Posterior circulation: The origins of the vertebral arteries both appear widely patent. The more superior extracranial portions of both vertebral arteries also demonstrate normal courses and calibers. The right vertebral artery is dominant to the left. Soft tissues: Visualized neck soft tissues demonstrate no suspicious abnormalities. Bones: No suspicious bony lesions. Visualized cervical spine appears normally aligned. Moderate cervical spine degenerative change can be seen. IMPRESSION: No significant intracranial arterial abnormality is seen. No significant abnormality is seen within the arteries of the neck. Additional findings: Wtigom-ed-Zysjnm developmental anomalies Moderate cervical spine degenerative change Any quantitative measurements of stenosis were performed using NASCET criteria. Dictated by: Александр Martin M.D. on 06/20/2024 at 11:34 Approved by: Александр Martin M.D. on 06/20/2024 at 11:38 MRI brain: Radiologist's Impression: [place] [address] Magnetic Resonance Report Signed Patient: Chad Martinez MR#: [id number] : 1945 Acct:[id number] Age/Sex: 78 / M Date of Service: 06/20/24 Loc: ED Accession Number: [id number] Procedure: MR head/brain wo con Ordering Provider: Emanuel Phillips MD PROCEDURE: MR HEAD/BRAIN WO CON INDICATIONS: Dizzy/rule out stroke TECHNIQUE: Non-contrast axial T1 spin echo, axial T2 fast spin echo, sagittal and axial FLAIR, coronal T2 fast spin echo, axial gradient echo, axial diffusion and ADC through the brain. COMPARISON: [facility], CT, CT HEAD/BRAIN WO CON, 06/20/2024, 11:33. [facility], MR, BRAIN WITHOUT CONTRAST, 02/22/2017, 13:15. FINDINGS: Image quality: Excellent. CSF spaces: Ventricles appear symmetric in size and shape. Basal cisterns are patent. No extra-axial fluid collections. Brain: No intracranial bleeds or mass effects. There is cerebral volume loss for age. There are moderate, progressive periventricular and deep white matter chronic small vessel ischemic changes. Brainstem appears normal. Diffusion-weighted images show no acute infarct. No chronic ischemic insults. Normal intravascular flow voids are present. Skull and face: Calvarial bone marrow is normal in signal. Orbits are normal. Sinuses: Sinuses and mastoids are clear. IMPRESSION: 1. No acute intracranial process. 2. Age-related volume loss and moderate, progressive small vessel ischemic change. Dictated by: Layton Nash M.D. on 06/20/2024 at 14:48 Approved by: Layton Nash M.D. on 06/20/2024 at 14:51 [facility] Narrative Medical decision making narrative: Blood sugar by EMS 163. Patient here for near syncope diaphoresis dizziness. He was at his computer at home. Denied any chest pain. Rates headache 6 -02/14. It has resolved. Patient has history of coronary stent over 10 years ago. Follow[address] by Dr. Gold, cardiology with [facility]. No recent illness. Denies any chest pain or abdominal pain or back pain. After history and exam CBC CMP EKG troponin CT head chest x-ray CT angiogram head and neck [facility] Medical records reviewed: No recent visit for this complaint Differential considered: Includes but not limited to STEMI non-STEMI TIA stroke brain aneurysm Lab Test results independently reviewed as above. Pertinent findings: WBC 7.0 hemoglobin 14.0 INR 1.1 sodium 137 potassium 3.6 BUN 15 creatinine 1.11 troponin x2 less than 0.012, respiratory panel negative Independently reviewed EKG sinus bradycardia rate 49 otherwise normal EKG Imaging studies independently reviewed: CT angiogram head and neck no acute finding Chest x-ray no acute finding CT head no acute finding MRI brain no acute finding Consultations: None indicated at this time Treatments: Normal saline Re-evaluations: 3:10 p.m.. Updated patient and family results. Patient remains asymptomatic. At this time laboratory studies imaging studies are reassuring. Appropriate for outpatient follow up with this fourth officer and family doctor for Zio patch and/or echocardiogram. Patient never had chest pain or abdominal pain or back pain or headache. Discussion: Appropriate for discharge home exam is reassuring. Negative two troponins, MRI CT scan brain no acute finding. Never had any chest pain or back pain abdominal complaints. No further imaging in the chest or abdomen indicated. Return precautions reviewed. He desires discharge home. No urinary complaints. Diagnosis: Dizziness Discharge Plan Departure Patient Disposition: Home Clinical Impression: Dizziness Instructions: DI for Syncope in Adults (Fainting), DI for Dizziness-Nonvertigo Activity Restrictions/Additional Instructions: Your exam and laboratory studies and CT scan imaging and an MRI of the brain are reassuring today. Please follow up with your family doctor and fourth officer within a week for re-evaluation and to schedule echocardiogram as well as a Zio patch. There are many causes for dizziness. Today's workup is reassuring. Return if worse if any questions or concerns. Please continue your home medications. Prescriptions: No Action hydrocodone-acetaminophen 5-325 mg tablet 1 tab PO Q6H PRN (Reason: pain) Qty: 10 0RF ondansetron 4 mg tablet,disintegrating 4 mg PO Q8H PRN (Reason: nausea and vomiting) Qty: 10 0RF hydrocodone-acetaminophen 5-325 mg tablet 0.5 tab PO Q6H PRN (Reason: cough) Qty: 14 0RF dextromethorphan polistirex [12-Hour Cough Relief] 30 mg/5 mL suspension,extended rel 12 hr 10 ml PO Q12H PRN (Reason: cough) Qty: 89 0RF atorvastatin 40 mg tablet 40 mg PO BEDTIME hydrochlorothiazide 25 mg tablet 25 mg PO BEDTIME metoprolol tartrate 25 mg tablet 12.5 mg PO BID losartan 25 mg tablet 25 mg PO DAILY aspirin 81 mg Tablet,Delayed Release (Dr/Ec) 81 mg PO DAILY Referrals: Dionne Tanner PA-C [Primary Care Provider] - Stand Alone Forms: Patient Portal/API/Survey
--- NOTE | 2024-06-20 11:30 | EKG_ITS ---
[address] [address] Test Date: 2024-06-20 Pat Name: Chad Martinez Department: [facility] Room: Gender: Male [employer]ist: CHANEL : 1945 Requested By: Order Number: [id number] Reading MD: Alexander Rome MD Measurements Intervals [place] Rate: 49 P: 19 NH: 162 QRS: -28 QRSD: 100 T: 14 QT: 482 QTc: 435 Interpretive Statements Sinus bradycardia Electronically Signed On 06-20-2024 11:37:31 PST by Alexander Rome MD
[2024-06-20 11:45] LABS: Add Manual Diff / Slide Review NO; Basophils Absolute Auto 100 /uL (0-100); Basophils Percent Auto 1.2 % (0-2); Eosinophils Absolute Auto 100 /uL (0-450); Eosinophils Percent Auto 1.3 % (2-4); Hematocrit 40.6 % (41-53); Lymphocytes Absolute Auto 1800 /uL (1100-4500); Lymphocytes Percent Auto 25.9 % (25-40); Mean Corpuscular HGB Conc 34.6 % (30-36); Mean Corpuscular Hemoglobin 31.1 PG (26-34); Mean Corpuscular Volume 89.8 fL (80-100); Monocytes Absolute Auto 600 /uL (0-900); Monocytes Percent Auto 8.4 % (3-14); Neutrophils Absolute Auto 4400 /uL (1500-7000); Neutrophils Percent Auto 63.2 % (50-75); Platelet Count 179 X10^3/uL (150-400); Red Blood Cell Count 4.52 X10^6/uL (4.5-5.9)
[2024-06-20 11:53] LABS: INR 1.1 (0.9-1.3); Prothrombin Time 12.2 SECONDS (9.4-12.5)
[2024-06-20 11:56] LABS: Alanine Aminotransferase 23 IU/L (<50); Albumin 4.1 g/dL (3.5-5.0); Albumin Globulin Ratio 1.3 (1.0-2.8); Alkaline Phosphatase 62 U/L (38-126); Aspartate Aminotransferase 31 IU/L (17-59); BUN Creatinine Ratio 13.5 (6-22); Bilirubin Total 0.9 mg/dL (0.2-1.3); Blood Urea Nitrogen 15 mg/dL (9-20); Calcium 9.3 mg/dL (8.4-10.2); Carbon Dioxide 28 mmol/L (22-32); Chloride 102 mmol/L (98-107); Creatine Kinase 31 U/L (55-170); Estimated Glomerular Filt Rate > 60 mL/min (>60); Globulin 3.2 g/dL (1.7-4.1); Glucose 130 mg/dL (80-110); HEMOLYSIS < 15 (0-50); Lipase 133 U/L (23-300); Magnesium 1.9 mg/dL (1.6-2.3); PTT Partial Thromboplastin Tim 30 SECONDS (25.1-36.5); Potassium 3.6 mmol/L (3.4-5.1); Sodium 137 mmol/L (137-145); Total Protein 7.3 g/dL (6.3-8.2)
[2024-06-20 12:09] LABS: NT-proBNP (BNP-Adult 18+) 51 pg/mL (<450); Troponin I < 0.012 ng/mL (0.01-0.034)
[2024-06-20] MEDS: SODIUM CHLORIDE 0.9% 500 ML 1000 ML IV (12:43)
--- NOTE | 2024-06-20 12:47 | DI.MRI.S_ITS ---
PROCEDURE: MR HEAD/BRAIN WO CON INDICATIONS: Dizzy/rule out stroke TECHNIQUE: Non-contrast axial T1 spin echo, axial T2 fast spin echo, sagittal and axial FLAIR, coronal T2 fast spin echo, axial gradient echo, axial diffusion and ADC through the brain. COMPARISON: [facility], CT, CT HEAD/BRAIN WO CON, 06/20/2024, 11:33. [facility], MR, BRAIN WITHOUT CONTRAST, 02/22/2017, 13:15. FINDINGS: Image quality: Excellent. CSF spaces: Ventricles appear symmetric in size and shape. Basal cisterns are patent. No extra-axial fluid collections. Brain: No intracranial bleeds or mass effects. There is cerebral volume loss for age. There are moderate, progressive periventricular and deep white matter chronic small vessel ischemic changes. Brainstem appears normal. Diffusion-weighted images show no acute infarct. No chronic ischemic insults. Normal intravascular flow voids are present. Skull and face: Calvarial bone marrow is normal in signal. Orbits are normal. Sinuses: Sinuses and mastoids are clear. IMPRESSION: 1. No acute intracranial process. 2. Age-related volume loss and moderate, progressive small vessel ischemic change. Dictated by: Layton Nash M.D. on 06/20/2024 at 14:48 Approved by: Layton Nash M.D. on 06/20/2024 at 14:51
[2024-06-20 14:02] LABS: Adenovirus Not Detected (Not Detect); B. parapertussis Not Detected (Not Detecte); Bordetella pertussis Not Detected (Not Detect); Chlamydophila pneumoniae Not Detected (Not Detect); Coronavirus 229E Not Detected (Not Detect); Coronavirus HKU1 Not Detected (Not Detect); Coronavirus NL 63 Not Detected (Not Detect); Coronavirus OC43 Not Detected (Not Detect); Human Metapneumovirus Not Detected (Not Detect); Human Rhinovirus/Enterovirus Not Detected (Not Detect); Influenza A Not Detected (Not Detect); Influenza B Not Detected (Not Detect); Mycoplasma pneumoniae Not Detected (Not Detect); Parainfluenza Virus 1 Not Detected (Not Detect); Parainfluenza Virus 2 Not Detected (Not Detect); Parainfluenza Virus 3 Not Detected (Not Detect); Parainfluenza Virus 4 Not Detected (Not Detect); Respiratory Syncytial Virus Not Detected (Not Detect); SARS- CoV-2 Not Detected (Not Detecte)
[2024-06-20 14:10] LABS: Creatine Kinase 32 U/L (55-170)
[2024-06-20 14:23] LABS: Troponin I < 0.012 ng/mL (0.01-0.034)
== END 2024-06-20 15:23 | disposition home or self-care (01) ==
PROVIDERS: Emergency Provider Emergency Medicine; PCP Physician Assistant
DX: R42 Dizziness and giddiness (principal); R51.9 Headache, unspecified; R55 Syncope and collapse; R07.9 Chest pain, unspecified; Z95.5 Presence of coronary angioplasty implant and graft; R00.1 Bradycardia, unspecified
CPT/HCPCS: 36415; 70450; 70496; 70498; 70551; 71045; 80053; 82550; 83690; 83735; 83880; 84484; 85025; 85610; 85730; 87633; 93005; 96360; 96361; 99285; Q9967

== ENCOUNTER → 2024-12-07 08:16 | Outpatient (CLI) | payer MEDICARE, SELFPAY ==
[2023-02-09 15:14] VITALS: BMI 31.3
--- NOTE | 2024-12-07 08:20 | DI.ECHO.S_ITS ---
[facility] : : [address] : : [place] : : [id number] : : Phone: [phone] Echocardiogram Report + + :Name: ANDRÉS JOHNSON Study Date: 12/07/2024 Height: 74 in : :Hospital ReadingLocation: Weight: 223 lb : : Gender: Male BSA: 2.3 m2 : :: 1945 Age: 79 yrs BP: 154/94 mmHg: :Reason For Study: AORTIC DILATATION : :Ordering Physician: WILFREDO, : :ABDI Performed By: Kael Bernabe : :Referring: ABDI VILLALOBOS : + + Interpretation Summary The left ventricle is normal in size. The ejection fraction is estimated to be 50-55%. The right ventricle is at the upper limits of normal in size. The right ventricular systolic function is normal. The aortic valve is trileaflet. There is mildly reduced leaflet mobility. There is no hemodynamically significant valvular aortic stenosis. The ascending aorta is moderately enlarged. 4.5 cm in diameter. Previously 4.3 cm in diameter. Blood pressure 154/94 mmHg. Procedure: A two-dimensional transthoracic echocardiogram with color flow and Doppler was performed. The study quality was technically good. Comparison is made with the echocardiogram of 02/10/2023. The patient was in normal sinus rhythm during the exam. Left Ventricle: The left ventricle is normal in size. Left ventricular wall thickness is mildly increased. There is no thrombus. The ejection fraction is estimated to be 50-55%. There are no focal wall motion abnormalities. Diastolic parameters suggest a relaxation abnormality of the left ventricle, consistent with probable normal filling pressures. Right Ventricle: The right ventricle is at the upper limits of normal in size. The right ventricular systolic function is normal. Atria: The left atrium is mildly dilated. Right atrial size is normal. There is no Doppler evidence for an interatrial shunt. Mitral Valve: There is mild mitral annular calcification. There is trace mitral regurgitation. Aortic Valve: The aortic valve is trileaflet. The aortic valve is mildly calcified. There is mildly reduced leaflet mobility. There is no hemodynamically significant valvular aortic stenosis. There is trace aortic regurgitation. Tricuspid Valve: There is trace tricuspid regurgitation. Right ventricular systolic pressure is estimated to be 22 mmHg plus the clinically estimated CVP which cannot be estimated on this exam. Pulmonic Valve: The pulmonic valve is not well seen, but is grossly normal. There is trace pulmonic regurgitation. Great Vessels: The aortic root is mildly dilated. The ascending aorta is moderately enlarged. The pulmonary artery is normal size. The inferior vena cava was not visualized. Pericardium/ Pleura There is no pericardial effusion. MMode/2D Measurements & Calculations LVIDd: 5.2 cm LVOT diam: 2.4 cm LVIDs: 3.2 cm Ao root diam: 3.8 cm FS: 37.4 % asc Aorta Diam: 4.5 cm EPSS: 1.3 cm IVSd: 1.1 cm LVPWd: 1.1 cm LV atkins. diameter/BSA (cm/m^2): 2.3 LV sys. diameter/BSA (cm/m^2): 1.4 LA A2 area: 23.3 cm2 RA long axis: 4.4 cm LA A4 area: 26.9 cm2 RA area: 11.1 cm2 LA length (vol): 6.6 cm RA vol: 24.1 ml LA vol: 80.1 ml RA : 10.6 ml/m2 LA vol index: 35.2 ml/m2 RVD1 (basal): 4.0 cm RVD2 (mid): 3.4 cm TAPSE: 2.2 cm Doppler Measurements & Calculations Ao V2 max: 155.5 cm/sec LVOT Max Keith: 95.8 cm/sec Ao V2 mean: 107.6 cm/sec LV V1 max P.7 mmHg Ao max P.7 mmHg LV V1 VTI: 23.1 cm Ao mean P.0 mmHg JOSSIE(I,D): 2.7 cm2 Ao V2 VTI: 36.9 cm JOSSIE(V,D): 2.7 cm2 sev ratio: 0.63 JOSSIE indexed to BSA (cm^2/m^2): 1.2 MV E max keith: 59.3 cm/sec TR max keith: 234.7 cm/sec MV A max keith: 79.9 cm/sec TR max P.0 mmHg MV E/A: 0.74 PA V2 max: 93.2 cm/sec Med Peak E' Keith: 7.3 cm/sec PA V2 mean: 61.9 cm/sec E/E' med: 8.1 PA mean P.7 mmHg Lat Peak E' Keith: 7.3 cm/sec PA pr(Accel): 46.5 mmHg E/E' lat: 8.1 E/e' average: 8.1 MV dec time: 0.25 sec SV(LVOT): 100.6 ml Reading Physician:05:31 PM
== END ==
PROVIDERS: PCP Physician Assistant; Referring Provider Nurse Practitioner Acute Care; Visit Provider Nurse Practitioner Acute Care
DX: I77.810 Thoracic aortic ectasia (principal); I34.81 Nonrheumatic mitral (valve) annulus calcification; I77.89 Other specified disorders of arteries and arterioles
CPT/HCPCS: 93306

== ENCOUNTER 2025-06-14 08:58 | Emergency (ER) | payer MEDICARE, SELFPAY ==
[2023-02-09 15:14] VITALS: BMI 31.3
[2025-06-14 09:20] VITALS: BP 134/73; PULSE 56; RESP 17; TEMP 36.1; O2SAT 98; BMI 28.2
--- NOTE | 2025-06-14 09:28 | DI.RAD.S_ITS ---
PROCEDURE: XR CHEST 1V
--- NOTE | 2025-06-14 09:29 | ED_ITS ---
HPI - SOB/Dyspnea
--- NOTE | 2025-06-14 09:29 | ED.SOB ---
HPI - SOB/Dyspnea General Chief Complaint: Shortness of Breath/Dyspnea Stated Complaint: SOB, weakness Time Seen by Provider: 06/14/25 09:06 Source: patient Mode of arrival: Ambulatory Limitations: no limitations History of Present Illness HPI Narrative: 79-year-old gentleman history of CAD x1 stent, dyslipidemia, presents with increased shortness of breath, dyspnea on exertion, fatigue, and weakness intermittently over the past month walking 10-20 steps. When this happened 15 years ago discovered he needed 1 stent as he had blockage. He denies any active chest pain, diaphoresis, nausea, vomiting, back pain, cough, fever, chills, abdominal pain. Other than what is stated 14 point review of system is negative Related Data Home Medications ?Medication ?Instructions ?Recorded ?Confirmed aspirin 81 mg tablet,delayed 81 mg PO DAILY 11/20/18 02/09/23 release atorvastatin 40 mg tablet 40 mg PO BEDTIME 11/20/18 02/09/23 hydrochlorothiazide 25 mg tablet 25 mg PO BEDTIME 11/20/18 02/09/23 losartan 25 mg tablet 25 mg PO DAILY 11/20/18 02/09/23 metoprolol tartrate 25 mg tablet 12.5 mg PO BID 11/20/18 02/09/23 Previous Rx's ?Medication ?Instructions ?Recorded hydrocodone 5 mg-acetaminophen 325 1 tab PO Q6H PRN pain #10 tabs 10/21/22 mg tablet ondansetron 4 mg disintegrating 4 mg PO Q8H PRN nausea and 10/21/22 tablet vomiting #10 tabs dextromethorphan polistirex 30 10 ml PO Q12H PRN cough #89 mL 07/06/23 mg/5 mL oral susp ext.release 12hr (12-Hour Cough Relief) hydrocodone 5 mg-acetaminophen 325 0.5 tab PO Q6H PRN cough #14 tabs 07/06/23 mg tablet Allergies Allergy/AdvReac Type Severity Reaction Status Date / Time lisinopril AdvReac Mild COUGH Verified 06/14/25 09:19 Review of Systems Review of Systems ROS Unobtainable: All systems reviewed & are unremarkable except as noted in HPI and below Patient History Medical History Prostate enlargement HLD (hyperlipidemia) HTN (hypertension) CAD (coronary artery disease) Surgical History H/O heart artery stent Social History household members: spouse Smoking Status: Unknown if ever smoked alcohol intake: current Smoking Status: Unknown if ever smoked tobacco type: cigarettes alcohol intake frequency: 0-2 drinks per day Exam Narrative Exam Narrative: GENERAL: [79] year old patient appears stated age. Well-developed patient, in mild distress. HEAD: Atraumatic. Normocephalic. EYES: Pupils equal round and reactive. Extraocular motions intact. No scleral icterus. No injection or drainage. NECK: Trachea midline. Non tender CARDIOVASCULAR: Regular rate and rhythm without murmurs, gallops, or rubs. RESPIRATORY: Clear to auscultation. Breath sounds equal bilaterally. No wheezes, rales, or rhonchi. GASTROINTESTINAL: Abdomen soft, non-tender, nondistended. EXTREMITIES: No edema or joint tenderness. BACK: Nontender without deformity or crepitance. No flank tenderness. NEURO: AOx3. SKIN: No rash or erythema of visible areas Initial Vital Signs Initial Vital Signs: Vital Signs Temperature 97.0 F L 06/14/25 09:20 Pulse Rate 56 L 06/14/25 09:20 Respiratory Rate 17 06/14/25 09:20 Blood Pressure 134/73 06/14/25 09:20 Pulse Oximetry 98 06/14/25 09:20 Oxygen Delivery Method Room Air 06/14/25 09:20 Course Orders Ordered: ED Orders 06/14/25 09:28 XR chest 1V Stat EKG-12 Lead Stat 06/14/25 09:30 Complete Blood Count AUTO DIFF Stat Comprehensive Metabolic Panel Stat Lipase Stat Magnesium Stat NT-proBNP (BNP-Adult 18+) Stat Troponin I Stat Vital Signs Vital signs: Vital Signs - 8 hr 06/14/25 09:20 Temperature 97.0 F L Pulse Rate 56 L Respiratory Rate 17 Blood Pressure 134/73 Pulse Oximetry 98 Oxygen Delivery Method Room Air MDM - SOB/Dyspnea Lab Data 06/14/25 09:30 06/14/25 09:30 Labs: Lab Results 06/14/25 06/14/25 Range/Units 09:30 11:50 WBC 7.0 (4.5-11.0) X10^3/uL RBC 4.63 (4.5-5.9) X10^6/uL Hgb 14.2 (13.5-17.5) g/dL Hct 41.1 (41-53) % MCV 88.8 (80-100) fL MCH 30.8 (26-34) PG MCHC 34.7 (30-36) % RDW 14.1 (11.6-14.8) % Plt Count 174 (150-400) X10^3/uL Neut % (Auto) 62.4 (50-75) % Lymph % (Auto) 26.3 (25-40) % [place] % (Auto) 9.0 (3-14) % Eos % (Auto) 1.6 L (2-4) % Baso % (Auto) 0.7 (0-2) % Neut # (Auto) 4300 (1021-1986) /uL Lymph # (Auto) 1800 (6432-2177) /uL [place] # (Auto) 600 (0-900) /uL Eos # (Auto) 100 (0-450) /uL Baso # (Auto) 100 (0-100) /uL Sodium 138 (137-145) mmol/L Potassium 3.6 (3.4-5.1) mmol/L Chloride 102 (98-107) mmol/L Carbon Dioxide 27 (22-32) mmol/L BUN 13 (9-20) mg/dL Creatinine 0.95 (0.66-1.25) mg/dL Estimated GFR > 60 (>60) mL/min BUN/Creatinine Ratio 13.7 (6-22) Glucose 118 H (70-99) mg/dL Calcium 9.1 (8.4-10.2) mg/dL Magnesium 2.0 (1.6-2.3) mg/dL Total Bilirubin 0.9 (0.2-1.3) mg/dL AST 31 (17-59) IU/L ALT 18 (<50) IU/L Alkaline Phosphatase 59 (38-126) U/L Troponin I < 0.012 < 0.012 (0.01-0.034) ng/mL NT-Pro-B Natriuret Pep 28 (<450) pg/mL Total Protein 7.9 (6.3-8.2) g/dL Albumin 4.4 (3.5-5.0) g/dL Globulin 3.5 (1.7-4.1) g/dL Albumin/Globulin Ratio 1.3 (1.0-2.8) Lipase 162 (23-300) U/L Imaging Data Chest x-ray: Radiologist's Impression: [address] [address] XRay Report Signed Patient: Chad Martinez MR#: [id number] : 1945 Acct:[id number] Age/Sex: 79 / M Date of Service: 06/14/25 Loc: ED Accession Number: [id number] Procedure: XR chest 1V Ordering Provider: Alexander Calhoun D.O. PROCEDURE: XR CHEST 1V INDICATIONS: chest pain TECHNIQUE: One view of the chest was acquired. COMPARISON: [facility], CR, XR CHEST 2V, 11/08/2018, 16:27. [facility], CR, XR CHEST 1V, 02/09/2023, 9:15. [facility], CR, XR CHEST 1V, 06/20/2024, 11:32. FINDINGS: Surgical changes and devices: None. Lungs and pleura: Lungs are clear. No pleural effusions or pneumothorax. Mediastinum: Mediastinal contours appear normal. Heart size is normal. Atherosclerotic calcification of the aortic arch is noted. Bones and chest wall: No suspicious bony lesions. Age-appropriate bony degenerative changes are seen. Overlying soft tissues appear unremarkable. IMPRESSION: No acute cardiopulmonary abnormality is seen. ECG Data Interpretation: Sinus Fili HR 54 MT 172 QRS [address]-t wave change Unchanged from 06/20/24 MDM Narrative Medical decision making narrative: All lab work, vital signs, nurse triage note, medication list, previous ER visits, and all imaging studies reviewed. WBC 7.0 hemoglobin 14.2 platelets 174 sodium 138 potassium 3.6 chloride 102 CO2 27 BUN 13 creatinine 0.95 glucose 118 LFTs normal magnesium 2.0 troponin 1st set less than 0.012 x 2 BNP 28 lipase 162. Chest x-ray no acute process. Attempted to do scheduled patient for nuclear stress test but no availability. Patient will call Dr. Villeda office or PCP scheduled for outpatient stress test. Differential diagnosis would STEMI NSTEMI unstable angina PE congestive heart failure pneumonia sepsis. Discharge Plan Departure Patient Disposition: Home Clinical Impression: Breath shortness Instructions: DI for Shortness of Breath Activity Restrictions/Additional Instructions: Return with new or worsening symptoms. Please follow up with operations lead and/or PCP for outpatient stress test call office this afternoon. Prescriptions: No Action hydrocodone-acetaminophen 5-325 mg tablet 1 tab PO Q6H PRN (Reason: pain) Qty: 10 0RF ondansetron 4 mg tablet,disintegrating 4 mg PO Q8H PRN (Reason: nausea and vomiting) Qty: 10 0RF hydrocodone-acetaminophen 5-325 mg tablet 0.5 tab PO Q6H PRN (Reason: cough) Qty: 14 0RF dextromethorphan polistirex [12-Hour Cough Relief] 30 mg/5 mL suspension,extended rel 12 hr 10 ml PO Q12H PRN (Reason: cough) Qty: 89 0RF atorvastatin 40 mg tablet 40 mg PO BEDTIME hydrochlorothiazide 25 mg tablet 25 mg PO BEDTIME metoprolol tartrate 25 mg tablet 12.5 mg PO BID losartan 25 mg tablet 25 mg PO DAILY aspirin 81 mg Tablet,Delayed Release (Dr/Ec) 81 mg PO DAILY Referrals: Dionne Tanner PAOtilia [Primary Care Provider, Medical] Stand Alone Forms: Patient Portal/API
--- NOTE | 2025-06-14 09:36 | EKG_ITS ---
[facility]
[2025-06-14 09:44] LABS: Add Manual Diff / Slide Review NO; Hematocrit 41.1 % (41-53); Hemoglobin 14.2 g/dL (13.5-17.5); Lymphocytes Absolute Auto 1800 /uL (1100-4500); Mean Corpuscular HGB Conc 34.7 % (30-36); Mean Corpuscular Hemoglobin 30.8 PG (26-34); Mean Corpuscular Volume 88.8 fL (80-100); Platelet Count 174 X10^3/uL (150-400)
[2025-06-14 09:57] LABS: Alanine Aminotransferase 18 IU/L (<50); Albumin 4.4 g/dL (3.5-5.0); Albumin Globulin Ratio 1.3 (1.0-2.8); Alkaline Phosphatase 59 U/L (38-126); Blood Urea Nitrogen 13 mg/dL (9-20); Calcium 9.1 mg/dL (8.4-10.2); Carbon Dioxide 27 mmol/L (22-32); Chloride 102 mmol/L (98-107); Estimated Glomerular Filt Rate > 60 mL/min (>60); Globulin 3.5 g/dL (1.7-4.1); Glucose 118 mg/dL (70-99); HEMOLYSIS 37 (0-50); Lipase 162 U/L (23-300); Magnesium 2.0 mg/dL (1.6-2.3); Potassium 3.6 mmol/L (3.4-5.1); Sodium 138 mmol/L (137-145); Total Protein 7.9 g/dL (6.3-8.2)
[2025-06-14 10:09] LABS: NT-proBNP (BNP-Adult 18+) 28 pg/mL (<450); Troponin I < 0.012 ng/mL (0.01-0.034)
[2025-06-14 11:39] VITALS: PULSE 52; O2SAT 98
[2025-06-14 11:41] VITALS: BP 150/83; PULSE 52; RESP 11; O2SAT 99
[2025-06-14 12:00] VITALS: BP 144/80; PULSE 51; RESP 14; O2SAT 97
[2025-06-14 12:26] LABS: Troponin I < 0.012 ng/mL (0.01-0.034)
[2025-06-14 12:30] VITALS: BP 143/79; PULSE 51; RESP 15; O2SAT 97
== END 2025-06-14 12:46 | disposition home or self-care (01) ==
PROVIDERS: Emergency Provider Family Medicine; PCP Physician Assistant
DX: R06.02 Shortness of breath (principal); R07.9 Chest pain, unspecified; Z86.79 Personal history of other diseases of the circulatory system
CPT/HCPCS: 36415; 71045; 80053; 83690; 83735; 83880; 84484; 85025; 93005; 99284

== ENCOUNTER → 2025-07-12 13:38 | Outpatient (CLI) | payer MEDICARE, SELFPAY ==
[2023-02-09 15:14] VITALS: BMI 31.3
--- NOTE | 2025-07-12 13:39 | DI.NM.S_ITS ---
PROCEDURE: NM MARYSOL PERF SPECT R&S PHARM Rest and pharmacological stress myocardial perfusion SPECT with gated imaging and ejection fraction RADIOPHARMACEUTICAL: 26.7 mCi Tc-99m tetrafosmin IV at rest and 26.2 mCi Tc-99m tetrafosmin IV at peak effect of pharmacological stress. [id number] was performed. INDICATIONS: exertional sob PQRS ATTESTATIONS: Measure 322 - Is this imaging test primarily performed on a low-risk surgery patient for preoperative evaluation within 30 days preceding their low-risk non-cardiac surgery? Low-risk surgery is defined as cardiac or myocardial infarction less than 1%, including (but not limited to) endoscopic procedures, superficial procedures, cataract surgery, and excisional breast surgery: Answer: No Measure 323 - Is this imaging test performed primarily for the monitoring of an asymptomatic patient who had percutaneous coronary intervention on the visit date or within 2 years of the visit date? Answer: No Measure 324 - Is this imaging test performed primarily for the initial detection and risk assessment on an asymptomatic, low coronary heart disease patient? Low CHD risk definition = clinicians should consider the maximum number of available patient factors used to estimate risk based on [place] (ATP III criteria), typically age, gender, diabetes, smoking status, and use of blood pressure medication, and integrate age appropriate estimates for missing elements, such as LDL or standard blood pressure. Answer: No TECHNIQUE: Radiopharmaceutical was injected at peak stress test, and also at rest. SPECT images were obtained. SPECT myocardial perfusion images were displayed in short axis, horizontal long axis, and vertical long axis views. Gated images were reviewed using [employer] software. COMPARISON: None. CARDIAC STRESS: A pharmacologic stress test was performed under the supervision of an attending staff, using an infusion of 0.4 mg of Lexiscan. Hemodynamic data: There is normal blood pressure and heart rate response to pharmacologic stress. Symptoms: The patient denied anginal chest pain. Aminophylline: None EKG: No diagnostic changes of ischemia; no ectopy. FINDINGS: Raw data: There is good myocardial uptake of radiotracer. No significant motion artifacts. [id number] ratio is not available (normal is less than 0.38 for tetrafosmin tracer). Left ventricle function: Gated images demonstrate normal left ventricular wall thickening. No segmental wall motion abnormalities. No transient ischemic dilation; TID is 0.85 (normal less than 1.3). Left ventricle resting end diastolic volume is 129 mL. Left ventricle stress ejection fraction is 70%; normal range is above 45%. Myocardial perfusion: Rest images had mild hypoperfusion in the inferior segment. There was also mild hypoperfusion in the inferior segment noted on the stress images but when compared with rest, there was improved perfusion. No prone images were available. Gated images demonstrated no segmental wall motion abnormalities. Therefore, this is most likely due to diaphragmatic attenuation. IMPRESSION: Negative Lexiscan myocardial perfusion scan for ischemia and infarction. Dictated by: Néstor Barrera M.D. on 07/15/2025 at 17:06 Approved by: Néstor Barrera M.D. on 07/15/2025 at 17:09
== END ==
LOC: NUCM 13:39
PROVIDERS: PCP Physician Assistant; Referring Provider Physician Assistant; Visit Provider Internal Medicine Cardiovascular Disease
DX: R06.02 Shortness of breath (principal)
CPT/HCPCS: 78452; 93017; A9502; J2785